=== PATIENT | female | born 1965 | race Caucasian/White ===

== ENCOUNTER 2017-11-27 23:58 | Observation (INO) | payer MEDICARE ==
[~2017-11-27] VITALS: Ht 160 cm; Wt 53.1 kg
[~2017-11-27 23:58] MED LIST: ASPI-482 PO; BENZ0.5T32 PO; BENZ2TAB5 PO; BISA-42 PO; CYCL-331 PO; DESL5TAB PO; DIPH25CA58 PO; DOCU100C2 PO; GABA-586 PO; IBUP800T19 PO; LAMO200T2 PO; LEVE500T6 PO; LEVO5TAB2 PO; LINA290C PO; LOSA1TAB19 PO; METO10TA PO; ONDA4TAB11 PO; PANT40TA5 PO; PHEN100C PO; POTA500T5 PO; RIZA10TA PO; TRAM-48 PO; ZALE10CA44 PO; ZIPR40CA2 PO; ZIPR60CA2 PO; ZIPR80CA2 PO
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
[2017-11-28] MEDS ORDERED: CONTRAST GIVEN MC PRN (00:30)
--- NOTE | 2017-11-28 00:33 | EKG ---
[address] [address] Test Date: 2017-11-28 Test Time: 00:28:37 Pat Name: NORMA POPE Department: Room: Gender: F Field Applications Specialist: CHARISSE : 1965 Requested By: MIKAELA ALEJANDRO Order Number: [id number] Reading MD: Tera Woo Measurements Intervals [place] Rate: 58 P: 0 WA: 118 QRS: 47 QRSD: 94 T: 63 QT: 458 QTc: 453 Interpretive Statements SINUS RHYTHM NORMAL ECG RI6.01 Compared to ECG 02/25/2016 08:27:42 Sinus tachycardia no longer present ST (T wave) deviation no longer present Electronically Signed On 12-05-2017 13:33:39 CDT by Tera Woo
[2017-11-28 00:47] LABS: BASO # 0.1 x10^3/uL (0.0-0.2); BASO % 1 % (0-3); EOS # 0.1 x10^3/uL (0.0-0.7); EOS % 3 % (0-3); HEMATOCRIT 38.3 % (36.0-47.0); HEMOGLOBIN 13.3 g/dL (12.0-15.5); LYMPH % 48 % (24-48); MEAN CORPUSCULAR HEMOGLOBIN 33 pg (25-35); MEAN CORPUSCULAR HGB CONC 35 g/dL (31-37); MEAN CORPUSCULAR VOLUME 95 fL (79-100); MONO # 0.4 x10^3/uL (0.0-1.1); MONO % 9 % (0-9); NEUT # 1.6 x10^3uL (1.8-7.7); NEUT % 38 % (31-73); PLATELET COUNT 290 x10^3/uL (140-400); RED BLOOD COUNT 4.06 x10^6/uL (3.50-5.40); RED CELL DISTRIBUTION WIDTH 13.2 % (11.5-14.5); WHITE BLOOD COUNT 4.2 x10^3/uL (4.0-11.0)
[2017-11-28] MEDS ORDERED: MVI, ADULT NO.4 WITH VIT K 10 ML, FOLIC ACID SYRINGE for ER 1 MG, THIAMINE 100 MG in IV... IV ONE ×4 (01:00)
[2017-11-28] MEDS ORDERED: LORazepam 2 MG/ML VIAL IV ONE ×2 (01:00→04:45)
[2017-11-28] MEDS ORDERED: IOHEXOL 300 MG/ML 75 ML VIAL. IV ONE (01:00)
[2017-11-28] MEDS ORDERED: THIAMINE 200 MG/2 ML VIAL. IV ONE (01:08)
[2017-11-28] MEDS ORDERED: MVI, ADULT NO.4 WITH VIT K 10 ML VIAL IV ONE (01:09)
[2017-11-28] MEDS ORDERED: FOLIC ACID 5 MG/ML SYRINGE for ER IV ONE (01:09)
[2017-11-28 01:13] LABS: ANION GAP 8 (6-14); BLOOD UREA NITROGEN 21 mg/dL (7-20); CALCIUM 9.1 mg/dL (8.5-10.1); CARBON DIOXIDE 30 mmol/L (21-32); CHLORIDE 103 mmol/L (98-107); CREATININE 1.1 mg/dL (0.6-1.0); GFR 52.2; GLUCOSE 69 mg/dL (70-99); MAGNESIUM 2.6 mg/dL (1.8-2.4); PHENY 4.7 mcg/mL (10.0-20.0); POTASSIUM 3.6 mmol/L (3.5-5.1); SODIUM 141 mmol/L (136-145)
[2017-11-28 01:20] LABS: BARBITURATES NEG (NEG); BENZODIAZEPINES NEG (NEG); CANNABINOIDS NEG (NEG); COCAINE NEG (NEG); METHADONE NEG (NEG); OPIATES NEG (NEG); PHENCYCLIDINE NEG (NEG)
[2017-11-28 01:21] LABS: AMPHETAMINE/METHAMPHETAMINE POS (NEG)
[2017-11-28 01:23] LABS: BACTERIA,URINE MANY /HPF (0-FEW); BILIRUBIN,URINE NEG (NEG); CLARITY,URINE HAZY; COLOR,URINE YELLOW; GLUCOSE,URINE NEG (NEG); NITRITE,URINE POS (NEG); RBC,URINE 0 /HPF (0-2); UROBILINOGEN,URINE 0.2 mg/dL (0.2 mg/dL)
[2017-11-28 01:43] LABS: SEDIMENTATION RATE 5 (0-25)
[2017-11-28] MEDS ORDERED: DEXTROSE 50% 25 GM / 50ML DISP.SYRIN. IV ONE ×2 (01:50→02:15)
[2017-11-28] MEDS ORDERED: PHENYTOIN 100 MG/4 ML ORAL.SUSP. PO ONE (02:00)
[2017-11-28] MEDS ORDERED: cefTRIAXone IM 1 GM VIAL IM ONE (02:00)
[2017-11-28] MEDS ORDERED: levETIRAcetam 500 MG TABLET PO ONE (02:00)
[2017-11-28] MEDS: PHENYTOIN SODIUM EXTENDED 100 MG CAPSULE PO ONE (02:45)
--- NOTE | 2017-11-28 03:11 | RAD ---
CT chest abdomen and pelvis with contrast: History: Pain status post seizure and fall Axial helical images of the chest and abdomen were obtained after the administration of 70 cc IV Omni 300 contrast. Comparison: none CT OF THE CHEST WITH IV CONTRAST: There is no mediastinal lymphadenopathy or hematoma. There is no hilar lymphadenopathy. The lungs are clear. The thoracic aorta appears normal. There is bilateral breast implants. There is a small hiatal hernia. There are anchors around the proximal stomach. Impression: No acute findings. End Impression CT SCAN OF THE ABDOMEN WITH IV CONTRAST: Findings: Liver: Unremarkable Spleen: Unremarkable Pancreas: Unremarkable Adrenal Glands: Unremarkable Kidneys: Unremarkable Evaluation of stomach and bowel is limited without oral contrast. There is no mass or lymphadenopathy. There is no free air. There is no free fluid. Impression: No acute findings. End impression PQRS Compliance Statement: One or more of the following individualized dose reduction techniques were utilized for this examination: 1. Automated exposure control 2. Adjustment of the mA and/or kV according to patient size 3. Use of iterative reconstruction technique Electronically signed by: Tahir Bear III, MD (11/28/2017 3:07 AM) [email or web address]
--- NOTE | 2017-11-28 03:28 | RAD ---
CT C-Spine without contrast: Clinical History: Seizure, fall, contusion to right orbit Technique: Axial helical images of the cervical spine were obtained without contrast, axial coronal and sagittal reconstruction was performed. Findings: There is degradation of the images due to significant motion artifact. There is no loss of vertebral body stature. There is no prevertebral soft tissue swelling. The vertebral bodies are well aligned. The C1-C2 relationship is normal. The visualized osseous structures appear normal. Evaluation of the central canal is limited without contrast. There is multiple posterior disc bulges resulting in flattening of the thecal sac. There does not appear to be gross flattening of the cervical cord. There is moderate narrowing of multiple neuroforamen. Impression: Limited study due to motion. No acute findings. Clinical correlation suggested. PQRS Compliance Statement: One or more of the following individualized dose reduction techniques were utilized for this examination: 1. Automated exposure control 2. Adjustment of the mA and/or kV according to patient size 3. Use of iterative reconstruction technique Electronically signed by: Tahir Bear III, MD (11/28/2017 3:25 AM) [facility]
--- NOTE | 2017-11-28 03:54 | RAD ---
CT Head W/O Contrast: History: seizure, fall, right orbital contusion
sent previous CT Head from01/2016 for comparison Comparison: February 25, 2016 Axial images were obtained without contrast. The coulter and white matter appears normal and symmetrical for the patients age. There is no mass effect, extraaxial fluid collections or hydrocephalus. There is no gross bleed. There is no focal loss of coulter-white matter distinction to suggest acute ischemia, i.e. stroke. Impression: No acute findings. RS Compliance Statement: One or more of the following individualized dose reduction techniques were utilized for this examination: 1. Automated exposure control 2. Adjustment of the mA and/or kV according to patient size 3. Use of iterative reconstruction technique Electronically signed by: Tahir Bear III, MD (11/28/2017 3:51 AM) [facility]
[2017-11-28] MEDS ORDERED: IV RINGERS SOLUTION,LACTATED 1,000 ML IV SCH (04:30)
[2017-11-28] MEDS ORDERED: ONDANSETRON PF 4 MG/2 ML VIAL. IV PRN (04:30)
[2017-11-28] MEDS ORDERED: LORazepam 2 MG/ML VIAL IV PRN (04:45)
[2017-11-28 05:17] VITALS: BP 133/88
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
[2017-11-28] MEDS ORDERED: PHENYTOIN 100 MG/4 ML ORAL.SUSP. PO SCH (06:00)
[2017-11-28] MEDS ORDERED: levETIRAcetam 500 MG/5 ML VIAL IV ONE (06:27)
--- NOTE | 2017-11-28 07:24 | RAD ---
Chest, 2 views, 11/28/2017: History: Seizure, fall, chest pain Comparison is made to a study from 02/25/2016. The heart size is normal. No pulmonary infiltrate is seen. There is no evidence of pneumothorax or pleural fluid. A mild thoracic scoliosis is evident. There are coil like radiopacities projected over the GE junction region. IMPRESSION: No acute cardiopulmonary abnormality is detected.
--- NOTE | 2017-11-28 07:26 | RAD ---
Abdomen, 2 views, 11/28/2017: History: Fall, seizure, abdominal pain Gas is present in large and small bowel in a nonspecific pattern. No free air is seen in the abdomen. There is no evidence of organomegaly. Surgical clips are present in the abdomen and pelvis. Mild scattered degenerative changes are evident in the spine. IMPRESSION: No acute abdominal abnormality is detected.
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
[2017-11-28] MEDS ORDERED: cefTRIAXone IV Push 1 GM VIAL. IVP SCH (22:00)
[2017-11-29 07:12] LABS: HCV ANTIBODY <0.1 s/co ratio (0.0-0.9)
== END 2017-11-28 10:06 | disposition left against medical advice (07) ==
LOC: ER 23:58 → 1 SOUTH 11-28 04:00 → INTOOBSV 11-28 04:00
PROVIDERS: ADMIT Family Medicine; ATTEND Family Medicine
DX: R58 Hemorrhage, not elsewhere classified (principal); F31.9 Bipolar disorder, unspecified; G40.909 Epilepsy, unspecified, not intractable, without status epilepticus; I10 Essential (primary) hypertension; E16.2 Hypoglycemia, unspecified; N39.0 Urinary tract infection, site not specified; Z72.0 Tobacco use; F11.90 Opioid use, unspecified, uncomplicated; Z87.440 Personal history of urinary (tract) infections; Z87.891 Personal history of nicotine dependence; Z90.710 Acquired absence of both cervix and uterus
CPT/HCPCS: 36415; 70450; 71046; 71260; 72125; 74021; 74160; 80048; 80074; 80185; 80307; 81001; 82140; 82553; 82947; 83605; 83735; 83880; 84484; 85025; 85610; 85651; 85730; 87040; 87086; 87186; 87205; 93005; 96372; 96374; 96375; 96376; 99285; G0378; J0696; J1953; J2060; J7120; Q9967; G0379; G0479

== ENCOUNTER 2017-12-03 07:09 | Emergency (ER) | payer MEDICARE ==
[~2017-12-03] VITALS: Ht 160 cm; Wt 67.4 kg
[2017-12-03 07:11] VITALS: BP 180/115
[2017-12-03 07:41] LABS: BASO % 1 % (0-3); EOS # 0.1 x10^3/uL (0.0-0.7); EOS % 1 % (0-3); HEMATOCRIT 40.3 % (36.0-47.0); LYMPH # 1.6 x10^3/uL (1.0-4.8); LYMPH % 22 % (24-48); MEAN CORPUSCULAR HEMOGLOBIN 33 pg (25-35); MEAN CORPUSCULAR HGB CONC 35 g/dL (31-37); MEAN CORPUSCULAR VOLUME 94 fL (79-100); MONO # 0.7 x10^3/uL (0.0-1.1); MONO % 10 % (0-9); NEUT # 4.7 x10^3uL (1.8-7.7); NEUT % 67 % (31-73); PLATELET COUNT 300 x10^3/uL (140-400); RED BLOOD COUNT 4.27 x10^6/uL (3.50-5.40); RED CELL DISTRIBUTION WIDTH 12.8 % (11.5-14.5); WHITE BLOOD COUNT 7.1 x10^3/uL (4.0-11.0)
[2017-12-03 07:53] LABS: ALBUMIN 3.8 g/dL (3.4-5.0); ALBUMIN/GLOBULIN RATIO 0.9 (1.0-1.7); CALCIUM 9.5 mg/dL (8.5-10.1); CREATININE 1.1 mg/dL (0.6-1.0); GFR 52.2; POTASSIUM 3.2 mmol/L (3.5-5.1); TOTAL BILIRUBIN 0.3 mg/dL (0.2-1.0)
[2017-12-03] MEDS ORDERED: IOHEXOL 300 MG/ML 75 ML VIAL. IV ONE (08:00)
[2017-12-03] MEDS ORDERED: IV NORMAL SALINE 1,000ML 1,000 ML IV ONE (08:00)
--- NOTE | 2017-12-03 08:20 | RAD ---
CT head without intravenous contrast History: Mental status change. Comparison: CT head November 28, 2017. Technique: Axial images are obtained of the head from the skull base through the vertex without IV contrast. Exposure: One or more of the following individualized dose reduction techniques were utilized for this examination: 1. Automated exposure control 2. Adjustment of the mA and/or kV according to patient size 3. Use of iterative reconstruction technique Findings: The ventricles are appropriate in size, shape, and location for the patient's age. No obvious intracranial mass, mass-effect, midline shift, hemorrhage or obvious acute infarction is identified. Basilar cisterns are patent. Bone windows demonstrate no acute calvarial abnormality. The visualized paranasal sinuses appear clear. Impression: No acute intracranial process. Please note that CT can be relatively insensitive to acute ischemic infarction for up to 24 hours after symptom onset. Electronically signed by: Cr Davenport MD (12/03/2017 8:17 AM) [facility]
--- NOTE | 2017-12-03 08:35 | RAD ---
CT Abdomen and Pelvis With Intravenous Contrast: History: Abdominal pain for 3 days. Comparison: CT abdomen pelvis October 21, 2014. Technique: After administration of intravenous contrast, 75 mL Omnipaque-300, CT of the abdomen and pelvis was performed. Exposure: One or more of the following individualized dose reduction techniques were utilized for this examination: 1. Automated exposure control 2. Adjustment of the mA and/or kV according to patient size 3. Use of iterative reconstruction technique Findings: Evaluation of enteric structures may be limited by lack of oral contrast. Images of lower chest demonstrate bilateral breast implants. There is evidence of small hiatal hernia versus slipped fundoplication. Suture material is seen at the gastroesophageal junction. Liver, spleen, pancreas, gallbladder, and bilateral adrenal glands are unremarkable. Bilateral kidneys enhance symmetrically. Aortic atherosclerosis is noted. Prior bowel surgery is noted. No evidence of bowel obstruction is identified. There is a single loop of bowel in the left side of the pelvis which is dilated, but this is thought to be chronic and compensatory as it is adjacent to the suture material. Appendix is without evidence of inflammation. Suture material is also seen at the rectum. Colonic diverticulosis is noted, but no diverticulitis appreciated. No free air or free fluid is seen in the abdomen or pelvis. Impression: 1. No acute abnormality identified in the abdomen or pelvis. Electronically signed by: Cr Davenport MD (12/03/2017 8:32 AM) [facility]
[2017-12-03 08:59] LABS: AMORPHOUS SEDIMENT,UR PRESENT /HPF; BACTERIA,URINE 0 /HPF (0-FEW); BILIRUBIN,URINE NEG (NEG); CLARITY,URINE CLOUDY; COLOR,URINE STRAW; GLUCOSE,URINE NEG (NEG); NITRITE,URINE NEG (NEG); RBC,URINE RARE /HPF (0-2); SQUAMOUS EPITHELIAL CELL,UR OCC /LPF; UROBILINOGEN,URINE 0.2 mg/dL (0.2 mg/dL); WBC,URINE RARE /HPF (0-4)
[2017-12-03 09:03] LABS: BARBITURATES NEG (NEG); BENZODIAZEPINES NEG (NEG); CANNABINOIDS NEG (NEG); COCAINE NEG (NEG); METHADONE NEG (NEG); OPIATES NEG (NEG); PHENCYCLIDINE NEG (NEG)
[2017-12-03 09:05] LABS: AMPHETAMINE/METHAMPHETAMINE POS (NEG)
[2017-12-03] MEDS ORDERED: LORazepam 2 MG/ML VIAL IV ONE (09:15)
--- NOTE | 2017-12-03 09:22 | ED.ADGEN ---
Past History Past Medical History: Bipolar, Constipation, Diverticulitis, Hypertension, Seizure, UTI, Other Past Surgical History: , Hysterectomy Smoking: Cigarettes Alcohol Use: Occasionally Drug Use: Marijuana, Methamphetamine Adult General Chief Complaint Chief Complaint Abdominal pain HPI HPI Patient is a 52-year-old female with history of , hysterectomy, seizure disorder, bipolar methamphetamine abuse who presents with diffuse right- sided abdominal pain. Symptom onset is unclear but did occur hours prior to ED arrival. Patient reported to be anxious, patient given 100 g of fentanyl by EMS. Denies nausea vomiting. No diarrhea constipation. Reports patient no blood in stools. Patient states she has had similar elbow pain for the past 4 months. She has not been evaluated by her primary care physician or GI specialist for her current symptoms. No fever chills or sweats. No hematuria, dysuria history of kidney stones. No other acute symptoms or complaints. History is somewhat limited as the patient appears anxious with suspected methamphetamine intoxication.[] Review of Systems Review of Systems Review symptoms as per history of present illness. All other review symptoms are negative. All other systems were reviewed and found to be within normal limits, except as documented in this note. Current Medications Current Medications Current Medications Medications (Trade) Dose Ordered Sig/Monico Start Time Stop Time Status Last Admin Dose Admin Iohexol (Omnipaque 300 Mg/ml) 75 ml 1X ONCE 12/03/17 08:00 12/03/17 08:01 DC 12/03/17 07:57 75 ML Lorazepam (Ativan) 1 mg 1X ONCE 12/03/17 09:15 12/03/17 09:16 DC 12/03/17 08:53 1 MG Sodium Chloride 1,000 ml @ 1,000 mls/hr 1X ONCE 12/03/17 08:00 12/03/17 08:59 DC 12/03/17 08:38 1,000 MLS/HR Allergies Allergies Allergies Coded Allergies Type Severity Reaction Last Updated Verified diphenhydramine Allergy Intermediate 10/07/14 Yes morphine Allergy Intermediate 10/07/14 Yes hydroxyzine Allergy Unknown 12/03/17 Yes Physical Exam Physical Exam Constitutional: Well developed, well nourished, no acute distress, non-toxic appearance. [] HENT: Normocephalic, atraumatic, bilateral external ears normal, oropharynx moist, nose normal. [] Eyes: PERRLA, EOMI, conjunctiva normal, no discharge. [] Neck: Normal range of motion. [] Cardiovascular:Heart rate regular rhythm, no murmur [] Lungs & Thorax: Bilateral breath sounds clear to auscultation [] Abdomen: Bowel sounds normal, soft, crease bowel sounds, mild distention, no rebound rigidity or guarding[] Skin: Warm, dry, no erythema, no rash. [] Back: No tenderness. [] Extremities: No tenderness, no edema. [] Neurologic: Alert and oriented X 3, normal motor function, normal sensory function, no focal deficits noted. [] Psychologic: Affect anxious.[] Current Patient Data Vital Signs Vital Signs Date Time Temp Pulse Resp B/P (MAP) Pulse Ox O2 Delivery O2 Flow Rate FiO2 12/03/17 07:11 98.3 125 20 100 Room Air Lab Results Laboratory Tests Test 12/03/17 07:15 12/03/17 08:27 White Blood Count 7.1 x10^3/uL (4.0-11.0) # Red Blood Count 4.27 x10^6/uL (3.50-5.40) Hemoglobin 14.0 g/dL (12.0-15.5) Hematocrit 40.3 % (36.0-47.0) Mean Corpuscular Volume 94 fL (79-100) Mean Corpuscular Hemoglobin 33 pg (25-35) Mean Corpuscular Hemoglobin Concent 35 g/dL (31-37) Red Cell Distribution Width 12.8 % (11.5-14.5) Platelet Count 300 x10^3/uL (140-400) Neutrophils (%) (Auto) 67 % (31-73) Lymphocytes (%) (Auto) 22 % (24-48) L Monocytes (%) (Auto) 10 % (0-9) H Eosinophils (%) (Auto) 1 % (0-3) Basophils (%) (Auto) 1 % (0-3) Neutrophils # (Auto) 4.7 x10^3uL (1.8-7.7) Lymphocytes # (Auto) 1.6 x10^3/uL (1.0-4.8) Monocytes # (Auto) 0.7 x10^3/uL (0.0-1.1) Eosinophils # (Auto) 0.1 x10^3/uL (0.0-0.7) Basophils # (Auto) 0.0 x10^3/uL (0.0-0.2) Sodium Level 142 mmol/L (136-145) Potassium Level 3.2 mmol/L (3.5-5.1) L Chloride Level 105 mmol/L (98-107) Carbon Dioxide Level 25 mmol/L (21-32) Anion Gap 12 (6-14) Blood Urea Nitrogen 26 mg/dL (7-20) H Creatinine 1.1 mg/dL (0.6-1.0) H Estimated GFR (Cockcroft-Gault) 52.2 BUN/Creatinine Ratio 24 (6-20) H Glucose Level 121 mg/dL (70-99) H Calcium Level 9.5 mg/dL (8.5-10.1) Total Bilirubin 0.3 mg/dL (0.2-1.0) Aspartate Amino Transferase (AST) 37 U/L (15-37) Alanine Aminotransferase (ALT) 61 U/L (14-59) H Alkaline Phosphatase 110 U/L (46-116) Total Protein 8.0 g/dL (6.4-8.2) Albumin 3.8 g/dL (3.4-5.0) Albumin/Globulin Ratio 0.9 (1.0-1.7) L Lipase 132 U/L (73-393) Ethyl Alcohol Level < 10 mg/dL (0-10) Urine Collection Type Unknown Urine Color Straw Urine Clarity Cloudy Urine pH 8.0 Urine Specific [place] 1.015 Urine Protein Neg (NEG-TRACE) Urine Glucose (UA) Neg mg/dL (NEG) Urine Ketones (Stick) Neg mg/dL (NEG) Urine Blood Trace (NEG) Urine Nitrite Neg (NEG) Urine Bilirubin Neg (NEG) Urine Urobilinogen Dipstick 0.2 mg/dL (0.2 mg/dL) Urine Leukocyte Esterase Neg (NEG) Urine RBC Rare /HPF (0-2) Urine WBC Rare /HPF (0-4) Urine Squamous Epithelial Cells Occ /LPF Urine Amorphous Sediment Present /HPF Urine Bacteria 0 /HPF (0-FEW) Urine Opiates Screen Neg (NEG) Urine Methadone Screen Neg (NEG) Urine Barbiturates Neg (NEG) Urine Phencyclidine Screen Neg (NEG) Urine Amphetamine/Methamphetamine Pos (NEG) Urine Benzodiazepines Screen Neg (NEG) Urine Cocaine Screen Neg (NEG) Urine Cannabinoids Screen Neg (NEG) Urine Ethyl Alcohol Neg (NEG) EKG EKG [] Radiology/Procedures Radiology/Procedures [CT abdomen pelvis: No acute abdominal process per radiology report. CT head: No acute findings per radiology report. ] Course & Med Decision Making Course & Med Decision Making Pertinent Labs and Imaging studies reviewed. (See chart for details) [Lab and CT imaging is reassuring. Suspect exacerbation of chronic abdominal pain. Recommend outpatient supportive care. ] Final Impression Final Impression 1. Abdominal pain-nonspecific[] 2. Methamphetamine intoxication Problems: Dragon Disclaimer Dragon Disclaimer This electronic medical record was generated, in whole or in part, using a voice recognition dictation system. JERRY CHRISTENSEN DO December 03, 2017 09:22
== END 2017-12-03 09:20 | disposition home or self-care (01) ==
LOC: ER 07:09
DX: R10.84 Generalized abdominal pain (principal); F15.129 Other stimulant abuse with intoxication, unspecified; F31.9 Bipolar disorder, unspecified; I10 Essential (primary) hypertension; G40.909 Epilepsy, unspecified, not intractable, without status epilepticus; F17.210 Nicotine dependence, cigarettes, uncomplicated; F12.10 Cannabis abuse, uncomplicated; Z87.440 Personal history of urinary (tract) infections; Z90.710 Acquired absence of both cervix and uterus; Z88.8 Allergy status to other drugs, medicaments and biological substances; Z88.5 Allergy status to narcotic agent
CPT/HCPCS: 36415; 70450; 74177; 80053; 80307; 81001; 83690; 85025; 96374; 99285; G0480; J2060; Q9967; G0479; J7030

== ENCOUNTER 2017-12-31 16:24 | Emergency (ER) | payer MEDICARE, OTHER ==
[2017-12-31 16:30] VITALS: BP 131/74
[2017-12-31] MEDS ORDERED: IV NORMAL SALINE 1,000ML 1,000 ML IV ONE (17:15)
--- NOTE | 2017-12-31 17:17 | PHYS DOC ---
Past History Past Medical History: Bipolar, Constipation, Diverticulitis, Hypertension, Seizure, UTI, Other Past Surgical History: , Hysterectomy Smoking: Cigarettes Alcohol Use: Occasionally Drug Use: Marijuana, Methamphetamine Adult General Chief Complaint Chief Complaint: DIZZY/LIGHT HEADED HPI HPI 52-year-old female presents with lightheadedness, dizziness, and agitation. The patient admits to methamphetamine use the last time 4 days ago. She states that she is feeling weak, dizzy, and agitated. The last time she was feeling weak and dizzy she had a hemoglobin of 2. She was found have a GI bleed and had surgery. Patient denies fever or chills. She does have a erythematous rash on the posterior bilateral thighs. She states that these spots come and go and seem to change location. She states they are pruritic. The patient is also been vomiting the last 2 days. She tried using some grilled cheese last night and vomited soon after. She denies shortness of breath, chest pain. Review of Systems Review of Systems Constitutional: Denies fever or chills [] Eyes: Denies change in visual acuity, redness, or eye pain [] HENT: Denies nasal congestion or sore throat [] Respiratory: Denies cough or shortness of breath [] Cardiovascular: No additional information not addressed in HPI [] GI: Denies abdominal pain, nausea, vomiting, bloody stools or diarrhea [] : Denies dysuria or hematuria [] Musculoskeletal: Denies back pain or joint pain [] Integument: Rash on posterior bilateral thighs[] Neurologic: Denies headache, focal weakness or sensory changes [] Endocrine: Denies polyuria or polydipsia [] All other systems were reviewed and found to be within normal limits, except as documented in this note. Current Medications Current Medications Current Medications Medications (Trade) Dose Ordered Sig/Monico Start Time Stop Time Status Last Admin Dose Admin Sodium Chloride 1,000 ml @ 1,000 mls/hr 1X ONCE 12/31/17 17:15 12/31/17 18:14 UNV Allergies Allergies Allergies Coded Allergies Type Severity Reaction Last Updated Verified diphenhydramine Allergy Intermediate 10/07/14 Yes morphine Allergy Intermediate 10/07/14 Yes hydroxyzine Allergy Unknown 12/03/17 Yes Physical Exam Physical Exam Constitutional: Well developed, well nourished, no acute distress, non-toxic appearance. [] HENT: Normocephalic, atraumatic, bilateral external ears normal, oropharynx moist, no oral exudates, nose normal. [] Eyes: PERRLA, EOMI, conjunctiva normal, no discharge. [] Neck: Normal range of motion, no tenderness, supple, no stridor. [] Cardiovascular:Heart rate regular rhythm, no murmur [] Lungs & Thorax: Bilateral breath sounds clear to auscultation [] Abdomen: Bowel sounds normal, soft, no tenderness, no masses, no pulsatile masses. [] Skin: Erythematous patches on the bilateral posterior upper thighs. They look similar to urticaria, but they are not found anywhere else on her body. She has several sores from picking on her arms and lower legs.[] Back: No tenderness, no CVA tenderness. [] Extremities: No tenderness, no cyanosis, no clubbing, ROM intact, no edema. [] Neurologic: Alert and oriented X 3, normal motor function, normal sensory function, no focal deficits noted. [] Psychologic: Moving constantly on the bed. Cooperative, but hyper requiring redirection. [] EKG EKG [] Radiology/Procedures Radiology/Procedures [] Course & Med Decision Making Course & Med Decision Making Pertinent Labs and Imaging studies reviewed. (See chart for details) [ED course: Evaluation reveals a 52-year-old female with lightheadedness, dizziness and agitation. She does have a history of methamphetamine use she last used 4 days ago. I explained to her that coming off of that Medication will make you feel weak and lightheaded and agitated. I've encouraged her to stick with it is she will get better over time. I reviewed all of her laboratory studies and they all looked great. She is safe for discharge home.] Dragon Disclaimer Dragon Disclaimer This electronic medical record was generated, in whole or in part, using a voice recognition dictation system. Departure Departure: Impression: Primary Impression: Dizziness Additional Impression: Generalized weakness Disposition: 01 HOME, SELF-CARE Condition: IMPROVED Referrals: NAVEEN LEAL (PCP) Patient Instructions: Dizziness, Substance Abuse-Brief, Weakness Additional Instructions: I'm very pleased that she has been off of methamphetamines for 4 days. The worst of her symptoms should be over. Please know that you're welcome back to the emergency department at any time. Problem Qualifiers JERRY MCCANN DO Dec 31, 2017 17:17 ARNALDO BE DO Dec 31, 2017 18:49
[2017-12-31 17:34] LABS: BASO # 0.1 x10^3/uL (0.0-0.2); BASO % 1 % (0-3); EOS # 0.1 x10^3/uL (0.0-0.7); EOS % 1 % (0-3); HEMATOCRIT 37.4 % (36.0-47.0); HEMOGLOBIN 12.9 g/dL (12.0-15.5); LYMPH # 2.6 x10^3/uL (1.0-4.8); LYMPH % 38 % (24-48); MEAN CORPUSCULAR HEMOGLOBIN 33 pg (25-35); MEAN CORPUSCULAR HGB CONC 35 g/dL (31-37); MEAN CORPUSCULAR VOLUME 95 fL (79-100); MONO # 0.6 x10^3/uL (0.0-1.1); MONO % 10 % (0-9); NEUT # 3.4 x10^3uL (1.8-7.7); NEUT % 50 % (31-73); PLATELET COUNT 343 x10^3/uL (140-400); RED BLOOD COUNT 3.94 x10^6/uL (3.50-5.40); RED CELL DISTRIBUTION WIDTH 13.2 % (11.5-14.5); WHITE BLOOD COUNT 6.8 x10^3/uL (4.0-11.0)
--- NOTE | 2017-12-31 18:08 | RAD ---
PA and lateral chest. HISTORY: Weakness, cough PA and lateral views were taken of the chest. Lungs are free of confluent infiltrates. There is mild scoliosis. Heart is normal in size. There is no effusion. There is mild bowel distention in the abdomen with fluid levels in the colon. IMPRESSION: 1. No acute infiltrates. Electronically signed by: Ruddy Méndez MD (12/31/2017 6:05 PM) [facility]
--- NOTE | 2017-12-31 18:17 | RAD ---
Left elbow 3 views. HISTORY: Fall today, left elbow pain 3 views were taken of the left elbow. Fat pads at the elbow are not displaced. There is no acute fracture. There is mild spurring or small joint body at the anterior margin of the joint. IMPRESSION: 1. No acute fracture. Electronically signed by: Ruddy Méndez MD (12/31/2017 6:14 PM) [facility]
[2017-12-31 18:20] LABS: BILIRUBIN,URINE NEG (NEG); CLARITY,URINE CLEAR; COLOR,URINE STRAW; GLUCOSE,URINE NEG (NEG)
[2017-12-31 18:21] LABS: ALBUMIN 3.5 g/dL (3.4-5.0); ALBUMIN/GLOBULIN RATIO 0.9 (1.0-1.7); CALCIUM 8.5 mg/dL (8.5-10.1); CREATININE 1.1 mg/dL (0.6-1.0); GFR 52.2; NITRITE,URINE NEG (NEG); POTASSIUM 3.4 mmol/L (3.5-5.1); TOTAL BILIRUBIN 0.3 mg/dL (0.2-1.0); TOTAL PROTEIN 7.3 g/dL (6.4-8.2); UROBILINOGEN,URINE 0.2 mg/dL (0.2 mg/dL)
[2017-12-31 18:23] LABS: BACTERIA,URINE 0 /HPF (0-FEW); RBC,URINE OCC /HPF (0-2); SQUAMOUS EPITHELIAL CELL,UR OCC /LPF
== END 2017-12-31 18:58 | disposition home or self-care (01) ==
LOC: ER 16:24
DX: R42 Dizziness and giddiness (principal); R53.1 Weakness; R11.10 Vomiting, unspecified; M25.522 Pain in left elbow; R21 Rash and other nonspecific skin eruption; I10 Essential (primary) hypertension; F17.210 Nicotine dependence, cigarettes, uncomplicated; F15.10 Other stimulant abuse, uncomplicated; Z87.440 Personal history of urinary (tract) infections; Z88.5 Allergy status to narcotic agent; Z88.8 Allergy status to other drugs, medicaments and biological substances; W19.XXXA Unspecified fall, initial encounter; Y93.89 Activity, other specified; Y99.8 Other external cause status; Y92.89 Other specified places as the place of occurrence of the external cause
CPT/HCPCS: 36415; 71046; 73080; 80053; 81001; 85025; 96360; 99285-25; J7030

== ENCOUNTER 2018-03-02 17:34 | Inpatient (IN) | payer MEDICARE, OTHER ==
[~2018-03-02] VITALS: Ht 162.6 cm; Wt 56.9 kg
--- NOTE | 2018-03-02 17:42 | PHYS DOC ---
Past History Past Medical History: Bipolar, Diverticulitis, Fibromyalgia, GERD, Hypertension , Other Past Surgical History: Hysterectomy, Tonsillectomy, Other Smoking: Cigarettes Alcohol Use: Rarely Drug Use: Methamphetamine Adult General Chief Complaint Chief Complaint: Neck Pain HPI HPI Patient is a 52-year-old female who presents to the emergency department for evaluation. She states that she smoked methamphetamine this morning, and has had several falls. She complains of head and neck pain, as well as bilateral elbow pain. She is in a cervical collar. She has a history of bipolar disorder and anxiety, as well as epilepsy, and states she takes Keppra and Dilantin. She appears to be hyperventilating and very anxious and does have the appearance of being intoxicated on methamphetamine. She denies any chest pain. She has not had any definite vision changes or focal weakness. Her history is limited secondary to her intoxication there are no alleviating or exacerbating factors to her symptoms, although EMS reported hyperalgesia, with pain everywhere the patient was palpated. Review of Systems Review of Systems Constitutional: Denies fever or chills [] Eyes: Denies change in visual acuity, redness, or eye pain [] HENT: Denies nasal congestion or sore throat [] Respiratory: Denies cough or shortness of breath [] Cardiovascular:The patient denies any shortness of breath, chest pain, palpitations, or orthopnea [] GI: Denies abdominal pain, nausea, vomiting, bloody stools or diarrhea [] : Denies dysuria or hematuria [] Musculoskeletal: Patient reports head and neck pain, as well as bilateral elbow pain. She denies any other focal pain at this time. [] Integument: Denies rash or skin lesions [] Neurologic: Denies focal weakness or sensory changes [] Endocrine: Denies polyuria or polydipsia [] All other systems were reviewed and found to be within normal limits, except as documented in this note. Allergies Allergies Allergies Coded Allergies Type Severity Reaction Last Updated Verified diphenhydramine Allergy Intermediate 10/07/14 Yes morphine Allergy Intermediate 10/07/14 Yes hydroxyzine Allergy Unknown 12/03/17 Yes Physical Exam Physical Exam PHYSICAL EXAM: CONSTITUTIONAL: Well developed, well nourished HEAD: normocephalic, atraumatic EENT: PERRL, EOMI. Conjunctivae normal color, sclerae non-icteric; moist mucous membranes. NECK: Is mild diffuse tenderness to palpation of the cervical spine, examined on a limited basis through the cervical collar. LUNGS: Lungs CTA, breathing even and unlabored. Normal air movement. The patient is hyperventilating. HEART: Regular rate and rhythm, no murmur CHEST: No deformity; non-tender ABDOMEN: The abdomen is soft, and non-tender, no masses or bruits. EXTREM: Normal ROM; no deformity, no calf tenderness. Normal pulses palpable in all extremities. There is no pedal edema. There is soft tissue swelling noted on the left olecranon bursa, without any other deformity. There is diffuse tenderness to palpation to both elbows. MUSCULOSKELETAL: There is diffuse tenderness to palpation to the entire axial an impending ventricular skeleton without other focal bony tenderness to palpation. SKIN: No rash; no diaphoresis NEURO: Alert; normal speech and cognition; CN's grossly intact; strength grossly intact without focal deficit. BACK: No CVA TTP. PSYCHIATRIC: The patient is hyperventilating, appears extremely anxious, under the influence of amphetamines. EKG EKG [Normal sinus rhythm a rate of 86 bpm, normal axis, normal intervals, there are no acute ischemic ST/T changes.] Radiology/Procedures Radiology/Procedures [] Course & Med Decision Making Course & Med Decision Making 6:00 PM: Diagnostic workup is pending at this time. Care will be turned over to Dr. Arnold at shift change, report given. Jasiel Disclaimer Jasiel Disclaimer This electronic medical record was generated, in whole or in part, using a voice recognition dictation system. Departure Departure: Impression: Primary Impression: Methamphetamine intoxication Referrals: NAVEEN LEAL (PCP) TANK SOUZA MD Mar 02, 2018 17:42
[2018-03-02] MEDS ORDERED: LORazepam 2 MG/ML VIAL IV ONE (17:45)
[2018-03-02 17:50] LABS: BASO % 0 % (0-3); EOS # 0.1 x10^3/uL (0.0-0.7); EOS % 2 % (0-3); HEMATOCRIT 40.1 % (36.0-47.0); LYMPH # 2.2 x10^3/uL (1.0-4.8); LYMPH % 40 % (24-48); MEAN CORPUSCULAR HEMOGLOBIN 33 pg (25-35); MEAN CORPUSCULAR HGB CONC 35 g/dL (31-37); MEAN CORPUSCULAR VOLUME 94 fL (79-100); MONO # 0.4 x10^3/uL (0.0-1.1); MONO % 8 % (0-9); NEUT # 2.7 x10^3uL (1.8-7.7); NEUT % 50 % (31-73); PLATELET COUNT 294 x10^3/uL (140-400); RED BLOOD COUNT 4.26 x10^6/uL (3.50-5.40); RED CELL DISTRIBUTION WIDTH 12.8 % (11.5-14.5); WHITE BLOOD COUNT 5.5 x10^3/uL (4.0-11.0)
[2018-03-02 18:11] LABS: ALBUMIN 3.4 g/dL (3.4-5.0); ALBUMIN/GLOBULIN RATIO 0.8 (1.0-1.7); ALK PHOS 123 U/L (46-116); ALT (SGPT) 22 U/L (14-59); ANION GAP 14 (6-14); AST (SGOT) 18 U/L (15-37); BLOOD UREA NITROGEN 18 mg/dL (7-20); BUN/CREATININE RATIO 15 (6-20); CALCIUM 9.1 mg/dL (8.5-10.1); CARBON DIOXIDE 21 mmol/L (21-32); CHLORIDE 105 mmol/L (98-107); CREATININE 1.2 mg/dL (0.6-1.0); GFR 47.2; GLUCOSE 101 mg/dL (70-99); MAGNESIUM 2.5 mg/dL (1.8-2.4); PHENY 4.3 mcg/mL (10.0-20.0); POTASSIUM 3.5 mmol/L (3.5-5.1); SODIUM 140 mmol/L (136-145); TOTAL BILIRUBIN 0.2 mg/dL (0.2-1.0); TOTAL PROTEIN 7.6 g/dL (6.4-8.2)
--- NOTE | 2018-03-02 18:28 | RAD ---
PQRS Compliance Statement: One or more of the following individualized dose reduction techniques were utilized for this examination: 1. Automated exposure control 2. Adjustment of the mA and/or kV according to patient size 3. Use of iterative reconstruction technique CT head and cervical spine without contrast 03/02/2018 5:49 PM INDICATION: Fall, head and neck pain COMPARISON: CT head December 03, 2017, CT head and cervical spine November 28, 2017 TECHNIQUE: Multiple axial CT images of the head were obtained from skull base through the vertex without intravenous contrast. Multiple axial CT images of the cervical spine were obtained without intravenous contrast. Coronal and sagittal reformats are provided. FINDINGS: Head: Ventricles, sulci and basal cisterns are within normal limits. There is no hydrocephalus. Leo-white matter differentiation is normal. There is no acute intracranial hemorrhage. There is no mass, mass effect or midline shift. Posterior fossa is normal in appearance. Visualized portions of the orbits are normal. Paranasal sinuses are well aerated. Mastoid air cells are well aerated. Scalp and calvaria are normal. Cervical spine: Alignment of the cervical spine is normal. Skull base is intact. Craniocervical junction is normal in appearance. Atlantoaxial articulation is normal. Vertebral body heights are maintained without evidence for acute fracture. Mild to moderate facet arthropathy is noted primarily involving the right at C2-C3 and on the left at C4-C5 and C5-C6. Mild disc height loss with anterior marginal osteophytosis is noted at C4-C5 and C5-C6. There is moderate left and mild right neuroforaminal stenosis at C5-C6. No significant spinal canal stenosis. There is no prevertebral soft tissue swelling. Thyroid gland is normal in appearance. Visualized portions of the lung apices are normal without evidence for suspicious pulmonary nodule or infiltrate. Likely reactive cervical lymph nodes are visualized measuring up to 8 mm in the right level 2 distribution and 6 mm in the left level 2 distribution. IMPRESSION: 1. No acute intracranial hemorrhage. 2. No acute fracture or malalignment of the cervical spine. There is mild cervical spondylosis. Electronically signed by: Whitley Ortiz MD (03/02/2018 6:24 PM) [facility]
[2018-03-02] MEDS ORDERED: FOSPHENYTOIN IV ONE (19:30)
[2018-03-02] MEDS ORDERED: NORMAL SALINE IV ONE (19:30)
[2018-03-02 19:41] LABS: AMPHETAMINE/METHAMPHETAMINE POS (NEG); BARBITURATES NEG (NEG); BENZODIAZEPINES NEG (NEG); CANNABINOIDS NEG (NEG); COCAINE NEG (NEG); METHADONE NEG (NEG); OPIATES POS (NEG); PHENCYCLIDINE NEG (NEG)
[2018-03-02 19:56] LABS: BILIRUBIN,URINE NEG (NEG); CLARITY,URINE CLEAR; COLOR,URINE YELLOW; GLUCOSE,URINE NEG (NEG); UROBILINOGEN,URINE 0.2 mg/dL (0.2 mg/dL)
[2018-03-02 19:57] LABS: BACTERIA,URINE 0 /HPF (0-FEW); HYALINE CASTS, URINE FEW /HPF; NITRITE,URINE NEG (NEG); SQUAMOUS EPITHELIAL CELL,UR FEW /LPF
[2018-03-02] MEDS ORDERED: ONDANSETRON PF 4 MG/2 ML VIAL. IV PRN (21:30)
[2018-03-02 22:22] VITALS: BP 106/66
[2018-03-02] MEDS: IV NORMAL SALINE 1,000ML 1,000 ML IV SCH (22:23)
[2018-03-03 05:24] LABS: BASO % 1 % (0-3); EOS # 0.2 x10^3/uL (0.0-0.7); EOS % 4 % (0-3); HEMATOCRIT 39.9 % (36.0-47.0); HEMOGLOBIN 13.5 g/dL (12.0-15.5); LYMPH # 1.7 x10^3/uL (1.0-4.8); LYMPH % 43 % (24-48); MEAN CORPUSCULAR HEMOGLOBIN 33 pg (25-35); MEAN CORPUSCULAR HGB CONC 34 g/dL (31-37); MEAN CORPUSCULAR VOLUME 96 fL (79-100); MONO # 0.4 x10^3/uL (0.0-1.1); MONO % 11 % (0-9); NEUT # 1.6 x10^3uL (1.8-7.7); NEUT % 41 % (31-73); PLATELET COUNT 278 x10^3/uL (140-400); RED BLOOD COUNT 4.17 x10^6/uL (3.50-5.40); RED CELL DISTRIBUTION WIDTH 12.9 % (11.5-14.5); WHITE BLOOD COUNT 3.9 x10^3/uL (4.0-11.0)
[2018-03-03 05:43] VITALS: BP 100/66
[2018-03-03 05:47] LABS: CALCIUM 8.4 mg/dL (8.5-10.1); CREATININE 0.9 mg/dL (0.6-1.0); GFR 65.8; POTASSIUM 3.6 mmol/L (3.5-5.1)
[2018-03-03] MEDS: IV NORMAL SALINE 1,000ML 1,000 ML IV SCH ×2 (07:12→16:08)
--- NOTE | 2018-03-03 07:43 | EKG ---
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
--- NOTE | 2018-03-03 08:30 | RAD ---
Bilateral elbows, 6 views, 03/02/2018: HISTORY: Fall, pain No acute fracture or dislocation is identified. There is mild spurring at the left elbow joint. No joint effusion is evident. There is soft tissue swelling posteriorly at the left elbow. IMPRESSION: No acute bony abnormality is detected. Electronically signed by: Silver Lord MD (03/03/2018 8:26 AM) [facility]
--- NOTE | 2018-03-03 08:31 | RAD ---
AP chest, 03/02/2018: HISTORY: Fall, chest pain The heart size and pulmonary vascularity are normal. No pulmonary infiltrate is seen. There is no evidence of pleural fluid or pneumothorax. Mild scattered degenerative changes are present in the spine. IMPRESSION: No acute cardiopulmonary abnormality is detected. Electronically signed by: Silver Lord MD (03/03/2018 8:27 AM) [facility]
[2018-03-03] MEDS ORDERED: CETI-282 PO (10:39)
[2018-03-03] MEDS ORDERED: CLON0.5T11 PO (10:39)
[2018-03-03] MEDS ORDERED: ESCITALOPRAM OX10 MG PO (10:39)
[2018-03-03] MEDS ORDERED: LURA40TA PO (10:39)
[2018-03-03] MEDS ORDERED: ONDANSETRON ODT 4 MG TAB.RAPDIS PO PRN (10:45)
[2018-03-03] MEDS ORDERED: diphenhydrAMINE HCL 25 MG CAPSULE PO PRN (10:45)
[2018-03-03] MEDS ORDERED: BISACODYL TAB 5 MG TABLET.DR. PO PRN (10:45)
[2018-03-03 10:55] VITALS: BP 106/72
[2018-03-03] MEDS: CITALOPRAM 20 MG TABLET. PO SCH (12:38)
[2018-03-03] MEDS: PANTOPRAZOLE 40 MG TABLET. PO SCH (12:38)
[2018-03-03] MEDS: levETIRAcetam 500 MG TABLET PO SCH ×2 (12:38→20:10)
[2018-03-03] MEDS: CETIRIZINE HCL 10 MG TABLET PO SCH (12:38)
[2018-03-03] MEDS: clonazePAM 0.5 MG TABLET PO SCH ×2 (12:38→20:10)
[2018-03-03] MEDS: LOSARTAN 50 MG TABLET. PO SCH (12:39)
[2018-03-03] MEDS: BENZTROPINE MESYLATE 1 MG TABLET PO SCH ×2 (12:39→20:10)
[2018-03-03] MEDS: CYCLOBENZAPRINE 10 MG TABLET. PO SCH ×2 (12:39→20:11)
[2018-03-03] MEDS: hydroCHLOROthiazide 12.5 MG CAPSULE PO SCH (12:39)
[2018-03-03] MEDS: LINACLOTIDE 145 MCG CAPSULE. PO SCH (12:40)
--- NOTE | 2018-03-03 12:46 | HP ---
ADMIT DATE: 03/02/2018 HISTORY OF PRESENT ILLNESS: The patient is a 52-year-old female patient who came to the Emergency Room for evaluation as she smoked methamphetamine in the morning of admission day and has had several falls. She complains of head and neck pain as well as bilateral elbow pain. She is in a cervical collar. She has a history of bipolar disorder, anxiety as well as epilepsy for which takes Keppra and Dilantin. She appears to be anxious, hyperventilating when she arrived there and does have the appearance of being intoxicated on amphetamine. She denied any chest pain. She has not had any definite vision changes or focal weakness. She complained of pain everywhere. She was extensively investigated in the Emergency Room and has had multiple imaging including CT scan of the head and cervical spine x-rays, elbows and chest, and was admitted for further evaluation and treatment. PAST MEDICAL HISTORY: Significant for hypertension, seizure disorder, bipolar disorder, anxiety and depression, rheumatoid arthritis and gastroesophageal reflux disease as well as generalized epilepsy. PAST SURGICAL HISTORY: Significant for total hysterectomy with bilateral salpingo-oophorectomy, multiple hernia repair, breast augmentation. She did receive blood transfusion and apparently developed bowel tear and bowel resection in 09/2014. She underwent also exploratory laparotomy and adhesiolysis. ALLERGIES: SHE IS ALLERGIC TO MORPHINE, BENADRYL AND VISTARIL. FAMILY HISTORY: Her mother is alive, has diabetes and hypertension. Father because of brain cancer, diabetes, and hypertension. SOCIAL HISTORY: She is , has 2 sons. She lives with her , does not speak Arabic, does not smoke or drink alcohol, but has been clean for almost 7-month according to her and yesterday was the first time, she relapsed and used the methamphetamine that was brought in by her friends. MEDICATIONS: She is currently on following medications: She is on diphenhydramine 25 mg every 6 hours, cetirizine 10 mg daily, cyclobenzaprine 10 mg twice a day, losartan/hydrochlorothiazide 50/12.5 mg daily. She is on ibuprofen 800 mg 3 times a day, clonazepam 0.5 mg twice a day, phenytoin sodium extended release 400 mg at bedtime. She is on gabapentin 300 mg 3 times a day, levetiracetam for Keppra 500 mg twice a day, escitalopram oxalate 10 mg daily, lurasidone for Latuda 40 mg daily, benztropine mesylate 2 mg twice a day, bisacodyl 5 mg tablet, she takes 15 mg daily, ondansetron 8 mg 3 times a day, Protonix 40 mg daily and linaclotide for Linzess 290 mcg daily. REVIEW OF SYSTEMS: As per history of present illness. PHYSICAL EXAMINATION: GENERAL: On arrival to the Emergency Room, she apparently was hyperventilating and was somewhat intoxicated; however, there is no pallor, jaundice, cyanosis, lymphadenopathy or thyromegaly. No jugular venous distension. No limb edema. VITAL SIGNS: Her heart rate was 101, blood pressure 105/66, temperature was 97.5, respiratory rate was 26, and oxygen saturation 100% on room air. HEENT: Showed normocephalic, atraumatic. NECK: Supple. She was actually in cervical collar. HEART: Showed normal first and second heart sounds with no gallop, rub or murmur. CHEST: Clear to auscultation. No crepitation or rhonchi. ABDOMEN: Distended, soft, nontender. No guarding or rigidity. No organomegaly. Hernial orifice intact and bowel sounds normal. She has multiple scars from previous surgeries. NEUROLOGIC: She was somewhat lethargic, but arousable. All cranial nerves intact. EXTREMITIES: He moves extremities without difficulty. LABORATORY DATA: On admission showed a white cell count. Serum sodium 140, potassium 3.5, chloride 105, bicarbonate 21, anion gap of 14, BUN 18, creatinine 1.2, estimated GFR was 47.2. Glucose was 111, calcium 9.1, magnesium 2.5. Total bilirubin, AST, ALT, alkaline phosphatase are all normal. Her urinalysis showed the urine was yellow, clear with a pH of 5.5, specific gravity of 1.025. The urine was negative for protein, glucose. There was trace of ketones, negative for blood, nitrite and leukocyte esterase. There were only 1-2 rbc's, 1-4 wbc's and no bacteria. Her toxic screen was positive for opiates as well as amphetamine, methamphetamine and was negative for alcohol, cannabinoids, cocaine, benzodiazepine, phencyclidine. Her phenytoin level was only 4.3 mcg/mL, which is subtherapeutic as the therapeutic range is between 10-20 mcg/mL. RADIOLOGICAL DATA: Because of pain in her elbow joints and also neck pain, she underwent a CT scan of the head and cervical spine. CT scan of the head without contrast showed that the ventricles, sulci and basal cisterns are within normal limits. There is no hydrocephalus. Retana and white matter differentiation is normal. There is no acute intracranial hemorrhage. There is no mass, mass effect or midline shift. Posterior fossa is normal in appearance. The visualized portion of the orbits are normal. Paranasal sinuses are well aerated. Mastoid air cells are well aerated. Scalp and calvaria are normal. The CT scan of the cervical spine showed the alignment of the cervical spine is normal. Skull base is intact. Craniocervical junction is normal in appearance. Atlantoaxial articulation is normal. Vertebral body heights are maintained without evidence of acute fracture. She has [id number] facet arthropathy, is noted primarily involving the right at C2-C3 and on the left at C4-C5 and C5-C6, mild disk height loss with anterior marginal osteophytosis noted at C4-C5 and C5-C6. There is moderate left and mild right neural foraminal stenosis at C5-C6. No significant spinal canal stenosis. There is no prevertebral soft tissue swelling. Thyroid gland is normal in appearance. Visualized portion of the lung apices are normal without evidence of suspicious pulmonary nodules or infiltrate, likely reactive cervical lymph nodes are visualized measuring up to 8 mm in the right level 2 distribution and 6 mm in the left level 2 distribution. IMPRESSION: The patient has no intracranial hemorrhage and no acute fracture or malalignment of cervical spine, with mild cervical spondylosis. Her x-ray of the elbow showed no acute fracture or dislocation identified. There is mild scarring at the left elbow joint. No joint effusion is evident. There is soft tissue swelling posteriorly in the left elbow as she has olecranon bursitis. Her chest x-ray showed that the heart size and pulmonary vascularity are normal. No pulmonary infiltrate is seen. There is no evidence of pleural effusion or pneumothorax, mild scattered degenerative changes are present in the spine. So, the patient was basically admitted with methamphetamine intoxication. She also complained of neck pain, elbow pain as she has fallen multiple times. Her phenytoin level was subtherapeutic, so she was given 1000 mg of Keppra IV and fosphenytoin sodium 540 mg together with lorazepam. We will consult Dr. Habib and decide on further management accordingly. MEHNAZ WETZEL MD DR: JOSELO/ceci JOB#: [id number] / [id number]
--- NOTE | 2018-03-03 13:12 | RAD ---
CT LUMBAR SPINE WO CONTRAST, CT THORACIC SPINE WO CONTRAST Indication: SEVERE PAIN WITH RECENT FALL Technique: Noncontrast CT imaging was performed of the thoracic and lumbar spine, multiplanar reconstruction images submitted. One or more of the following individualized dose reduction techniques were utilized for this examination: 1. Automated exposure control 2. Adjustment of the mA and/or kV according to patient size 3. Use of iterative reconstruction technique. Contrast: None Comparison: November 28, 2017 CT chest abdomen and pelvis exam Thoracic spine: Findings: There are again multilevel Schmorl's nodes. Thoracic vertebral body stature is unchanged. AP alignment is unchanged. There is mild to moderate degenerative disc disease most notable T6-T7 through T10-11. No acute thoracic spine fracture is identified. There is mild mid thoracic dextroscoliosis. There is small hiatal hernia. There is some mild atelectasis lower lobes bilaterally. IMPRESSION: 1. No acute thoracic spine fracture is identified. There is multilevel thoracic degenerative disc disease, also multilevel Schmorl's nodes. 2. There is hiatal hernia. Lumbar spine: FINDINGS: Lumbar vertebral body stature and AP alignment are unchanged. There is negligible anterior spondylolisthesis at L4-5. Intervertebral disc spaces are mostly maintained, very mild narrowing L5-S1. No acute lumbar spine fracture is identified. There is facet degenerative change greatest at L4-5 and L5-S1. IMPRESSION: 1. No acute lumbar spine fracture is identified. Electronically signed by: Per Lucero MD (03/03/2018 1:09 PM) [id number]
[2018-03-03] MEDS: IBUPROFEN 800 MG TABLET. PO SCH ×2 (14:27→20:10)
[2018-03-03] MEDS: GABAPENTIN 300 MG CAPSULE. PO SCH ×2 (14:27→20:11)
[2018-03-03 14:45] VITALS: BP 131/77
[2018-03-03 19:40] VITALS: BP 114/72
[2018-03-03] MEDS ORDERED: PHENYTOIN SODIUM EXTENDED 100 MG CAPSULE PO SCH (21:00)
[2018-03-03] MEDS ORDERED: LURASIDONE 40 MG TABLET. PO SCH (21:00)
[2018-03-03 22:41] VITALS: BP 121/76
--- NOTE | 2018-03-03 23:56 | PN ---
DATE: 03/03/2018 SUBJECTIVE: The patient was admitted yesterday after she used amphetamine, has been clean for almost 7 months. She came with multiple falls, complaining of aches and pains all over, in particular in her neck and her elbows. She was extensively investigated. Apart from the fact that she has a subtherapeutic phenytoin level, all her labs and imaging studies were normal. When I saw her today, she will continue to be somewhat lethargic, but arousable. She also continued to complain of marked dizziness. She did receive a loading dose of phenytoin, loading dose of Keppra as well as lorazepam. PHYSICAL EXAMINATION: GENERAL: When I examined her this morning, she was somewhat pale, but no jaundice, cyanosis, or thyromegaly. No jugular venous distension. No lower limb edema. VITAL SIGNS: Her heart rate was 82, blood pressure was 106/72, temperature was 98.2, respiratory rate was 16, and oxygen saturation was 98%. HEAD, EYES, EARS, NOSE AND THROAT: Normocephalic, atraumatic. NECK: Supple. HEART: Showed normal first and second heart sounds. No gallop, rub or murmur. CHEST: Clear to auscultation. No crepitation or rhonchi. ABDOMEN: Scaphoid, soft, nontender. NEUROLOGIC: She was somewhat lethargic, but arousable. All cranial nerves intact. She moves her extremities without difficulty, although she was complaining of severe back pain and pain in her both elbows, more so on the left, she has olecranon bursitis. Her intake over the last 24 hours was 1420, no output was recorded. LABORATORY DATA: Her lab work this morning showed a white cell count 3900, hemoglobin 13, hematocrit 39, MCV 96, and platelet count 278,000 with normal manual differential. Her chemistry showed a serum sodium 141, potassium 3.6, chloride 106, bicarbonate 28, anion gap of 7, BUN 15, creatinine 0.9, estimated GFR was 65 mL per minute. Her glucose was 85 and calcium was 8.4. ASSESSMENT: This is a 52-year-old female patient who came in with amphetamine intoxication. She has a multitude of medical problems including seizure disorder, rheumatoid arthritis, bipolar disorder, anxiety and depression, gastroesophageal reflux disease. PLAN: I have already consulted Dr. Habib, although intoxication or side effect of phenytoin might cause this perhaps dizziness. I will get also PT, OT. I will check also her sed rate and CRP and arrange for her to have a CT scan of the thoracolumbar spine and get PT, OT to evaluate and treat. I will also check her phenytoin level tomorrow. MEHNAZ WETZEL MD DR: JOSELO/ceci JOB#: [id number] / [id number]
--- NOTE | 2018-03-04 00:47 | CONS ---
DATE OF CONSULTATION: NEUROLOGY CONSULTATION REASON FOR CONSULTATION: Acute mental status changes. HISTORY OF PRESENT ILLNESS: This is a 52-year-old right-handed female who was admitted through Emergency Room after she presented with chief complaints of frequent falls, confusions, behavior and steady stance. The patient stated she smoked methamphetamine last night when her friend visited her; however, she has been smoking methamphetamine since age of 40 and she have not smoked for 3 months until yesterday. The patient stated yesterday she slipped on the carpet and sustained a fall. She did not lose her consciousness. The patient recalls several falls in the last few days, but she does not remember why and how. The patient has had history of seizure and she has not been compliant with seizure medicine all the times. Currently, she states she has generalized headaches. She feels tired and steady and had blurred vision. She denies diplopia, dysphagia, or dysarthria. She also complains of generalized weakness. She denies chest pain or shortness of breath or palpitations. PAST MEDICAL HISTORY: Significant for seizure disorder, etiology uncertain, probably secondary to brain injuries, diverticulitis, hiatal hernia, GERD, chronic lower back pain, fibromyalgia, bipolar disorders, depressions, and substance abuse. SOCIAL HISTORY: The patient is single. She is a smoker and drinks alcohol occasionally and she smokes methamphetamine for many years. FAMILY HISTORY: Noncontributory. CURRENT HOME MEDICATIONS: She is supposed to take phenytoin 400 mg at bedtime, Latuda 40 mg at bedtime, gabapentin 300 mg t.i.d., Microzide 12.5 mg daily, Celexa 20 mg daily, Protonix 40 mg p.o. daily, losartan 50 mg daily, Linzess 290 mcg p.o. daily, Keppra 500 mg b.i.d., Flexeril 10 mg b.i.d., clonazepam 0.5 mg b.i.d., Benadryl 25 mg q. 6 hours p.r.n. for nausea and vomiting, and Zofran 4 mg IV p.r.n. for nausea. ALLERGIES: DIPHENHYDRAMINE, HYDROXYZINE, AND MORPHINE. REVIEW OF SYSTEMS: A 10-point review of system was performed and consistent with unsteady gait, confusion and this is probably to recent use of methamphetamine. PHYSICAL EXAMINATION: GENERAL: Well-developed, well-nourished white female, not in acute distress. She weighs 125 pounds. VITAL SIGNS: Blood pressure 106/72, respiratory rate 16, pulse is 82 and regular, temperature 98.2, oxygen saturation is 98% on room air. HEENT: Normocephalic, atraumatic, otherwise unremarkable. NECK: Supple. Negative for carotid bruit, lymphadenopathy or thyromegaly. LUNGS: Clear to A and P. CARDIOVASCULAR: Regular rhythm, normal S1, S2. ABDOMEN: Soft. Bowel sounds positive. EXTREMITIES: Negative for cyanosis, clubbing or pitting edema. NEUROLOGIC: 1. MENTAL STATUS: The patient is alert and oriented to place and she could not recall the month of the year. Speech is fluent. There is no language dysfunction. She recalls 2/3 immediately and 1/3 after 1 and 3 minutes. Judgment and abstracting thinking is fair. The patient denies hallucination or delusion. 2. CRANIAL NERVES: Visual segovia are full. The pupils are reactive to light and accommodation. The extraocular movements are intact. There is no nystagmus. There is no facial motor or sensory deficit. Hearing is intact bilaterally. The palate is elevated symmetrically. Sternocleidomastoid muscles are powerful bilaterally. The patient shrugs her shoulders symmetrically, protrudes her tongue in the midline without fasciculation or atrophy. 3. MOTOR: No focal muscle bulk was seen. The tone is normal. The strength is 5/5 throughout. 4. SENSORY EXAMINATION: Revealed normal pinprick and light touch senses throughout. 5. Deep tendon reflexes were symmetric and hypoactive with absent Achilles responses. 6. GAIT: The tandem gait is difficult, but the patient is able to walk in the room with a steady stance. DIAGNOSTIC DATA: Initial nonenhanced head CT scan, no acute intracranial process. Cervical CT scan, cervical spine CT scan revealed mild cervical spondylosis. LABORATORY DATA: CBC revealed white blood cells of 3.9 thousand, hemoglobin 13.5, hematocrit 39.9, platelet count 278,000. Chemistry revealed sodium 141, potassium 3.6, chloride 106, CO2 28, BUN 15, creatinine 0.9, glucose is 85 and calcium 8.4. Urinalysis is negative for urinary tract infections. Urine drug screen is positive for methamphetamine and opiates. IMPRESSION: 1. Acute encephalopathy and seizure disorder, presented with unsteady stance, tachycardia and confusion, likely due to underlying methamphetamine intoxications. 2. Multiple medical problems include hypertension, fibromyalgia, gastroesophageal reflux disease, diverticulitis. 3. Multiple psychiatric problems including bipolar disorders and anxiety disorders. RECOMMENDATIONS: 1. Continue with current management initiated by Dr. Sandhu including hydration and watch for tachycardia and withdrawal symptoms from methamphetamine. 2. Continue with current home medications. M Pancho BANERJEE MD DR: ALLA/ceci JOB#: [id number] / [id number]
[2018-03-04 06:01] VITALS: BP 98/64
[2018-03-04] MEDS: LINACLOTIDE 145 MCG CAPSULE. PO SCH (06:04)
[2018-03-04 06:39] LABS: HEMATOCRIT 38.6 % (36.0-47.0); HEMOGLOBIN 13.4 g/dL (12.0-15.5); RED BLOOD COUNT 4.05 x10^6/uL (3.50-5.40); RED CELL DISTRIBUTION WIDTH 12.5 % (11.5-14.5); WHITE BLOOD COUNT 4.3 x10^3/uL (4.0-11.0)
[2018-03-04 06:57] LABS: ALBUMIN 2.8 g/dL (3.4-5.0); ALBUMIN/GLOBULIN RATIO 0.8 (1.0-1.7); ALK PHOS 113 U/L (46-116); ALT (SGPT) 15 U/L (14-59); ANION GAP 6 (6-14); AST (SGOT) 11 U/L (15-37); BLOOD UREA NITROGEN 14 mg/dL (7-20); BUN/CREATININE RATIO 18 (6-20); C REACTIVE PROTEIN 5.1 mg/L (0-3.3); CALCIUM 8.5 mg/dL (8.5-10.1); CARBON DIOXIDE 26 mmol/L (21-32); CHLORIDE 108 mmol/L (98-107); CREATININE 0.8 mg/dL (0.6-1.0); GFR 75.3; GLUCOSE 79 mg/dL (70-99); PHENY 11.3 mcg/mL (10.0-20.0); POTASSIUM 4.1 mmol/L (3.5-5.1); SODIUM 140 mmol/L (136-145); TOTAL BILIRUBIN 0.2 mg/dL (0.2-1.0); TOTAL PROTEIN 6.5 g/dL (6.4-8.2)
[2018-03-04] MEDS: CYCLOBENZAPRINE 10 MG TABLET. PO SCH (08:55)
[2018-03-04] MEDS: CITALOPRAM 20 MG TABLET. PO SCH (08:56)
[2018-03-04] MEDS: clonazePAM 0.5 MG TABLET PO SCH (08:56)
[2018-03-04] MEDS: IBUPROFEN 800 MG TABLET. PO SCH (08:56)
[2018-03-04] MEDS: LOSARTAN 50 MG TABLET. PO SCH (08:56)
[2018-03-04] MEDS: BENZTROPINE MESYLATE 1 MG TABLET PO SCH (08:56)
[2018-03-04] MEDS: hydroCHLOROthiazide 12.5 MG CAPSULE PO SCH (08:56)
[2018-03-04] MEDS: PANTOPRAZOLE 40 MG TABLET. PO SCH (08:56)
[2018-03-04] MEDS: CETIRIZINE HCL 10 MG TABLET PO SCH (08:56)
[2018-03-04] MEDS: levETIRAcetam 500 MG TABLET PO SCH (08:56)
[2018-03-04] MEDS: GABAPENTIN 300 MG CAPSULE. PO SCH (08:56)
[2018-03-04] MEDS ORDERED: CITALOPRAM 20 MG TABLET. PO SCH (09:00)
[2018-03-04 11:07] VITALS: BP 106/74
--- NOTE | 2018-03-04 19:43 | PN ---
DATE: 03/04/2018 SUBJECTIVE: The patient is resting, slightly propped up, sleeping comfortably in her bed, in no apparent distress. She is arousable. She apparently has eaten her breakfast, managed to get up to the bathroom, her pain is much improved; however, she continued to be unsteady on her gait, even that she was assessed by the physical therapy. She voiced her desire to go home. I did recommend that she should stay as she continued to be unsteady and recommended that decision to be discharged will based on how she did with the physical therapist. PHYSICAL EXAMINATION: GENERAL: When I examined her in the morning, she looked well and was clearly in no apparent respiratory distress, pale, but no jaundice, cyanosis, or thyromegaly. No jugular venous distension. No limb edema. VITAL SIGNS: His heart rate was 86, blood pressure 106/74, temperature was 98, respiratory rate was 20, and oxygen saturation was 97%. HEAD, EYES, EARS, NOSE, AND THROAT: Normocephalic, atraumatic. NECK: Supple. HEART: Showed normal first and second sounds. No gallop, rub, or murmur. CHEST: Clear to auscultation. No crepitation or rhonchi. ABDOMEN: Distended, soft, nontender. No guarding or rigidity. No organomegaly. All hernial orifice intact. Bowel sounds normal. NEUROLOGIC: She was awake, alert, responding appropriately. All cranial nerves intact. She moves extremities without difficulty; however, she is clearly still unsteady with a walker and standby assist by physical therapist. LABORATORY DATA: Showed a white cell count 4300, hemoglobin 13, hematocrit 38, MCV 96, and platelet count of 252,000. Her chemistry showed serum sodium of 140, potassium 4.1, chloride 108, bicarbonate 26, anion gap of 6, BUN 14, creatinine 0.8, estimated GFR was 75 mL per minute. Her glucose was 79, calcium was 8.5, magnesium 2.1. Total bilirubin, AST, ALT, alkaline phosphatase were normal. Her total protein was 6.5, albumin 2.8. C-reactive protein was 5.1. Her Dilantin level was 11.3 which is well within therapeutic range. Urinalysis was unremarkable. She had had a CT scan of her thoracolumbar spine and both showed no acute thoracic spine fracture. There is multilevel thoracic degenerative disk disease and also multilevel nodes: There is hiatal hernia. There is no acute lumbar spine fracture identified. Again, the patient insisted that she wants to go home and basically we obviously have no authority to keep her against her will. Her family tried to convince her to stay, but she signed against medical advice. MEHNAZ WETZEL MD DR: JOSELO/ceci JOB#: [id number] / [id number]
== END 2018-03-04 13:33 | disposition left against medical advice (07) | DRG 894 ==
LOC: ER 17:34 → 1 SOUTH 21:00
PROVIDERS: ADMIT Internal Medicine; ATTEND Internal Medicine
DX: F15.129 Other stimulant abuse with intoxication, unspecified (principal); G93.40 Encephalopathy, unspecified; F17.200 Nicotine dependence, unspecified, uncomplicated; F41.9 Anxiety disorder, unspecified; F31.9 Bipolar disorder, unspecified; G40.409 Other generalized epilepsy and epileptic syndromes, not intractable, without status epilepticus; G89.29 Other chronic pain; I10 Essential (primary) hypertension; K21.9 Gastro-esophageal reflux disease without esophagitis; M06.9 Rheumatoid arthritis, unspecified; M70.20 Olecranon bursitis, unspecified elbow; M79.7 Fibromyalgia; R29.6 Repeated falls; W01.0XXA Fall on same level from slipping, tripping and stumbling without subsequent striking against object, initial encounter; Y93.89 Activity, other specified; Y92.89 Other specified places as the place of occurrence of the external cause; Y99.8 Other external cause status; Z80.8 Family history of malignant neoplasm of other organs or systems; Z82.49 Family history of ischemic heart disease and other diseases of the circulatory system; Z83.3 Family history of diabetes mellitus; Z90.49 Acquired absence of other specified parts of digestive tract; Z90.710 Acquired absence of both cervix and uterus; Z91.19 Patient's noncompliance with other medical treatment and regimen; Z88.5 Allergy status to narcotic agent; Z88.8 Allergy status to other drugs, medicaments and biological substances; Z79.899 Other long term (current) drug therapy; Z90.722 Acquired absence of ovaries, bilateral
CPT/HCPCS: 36415; 70450; 71045; 72125; 72128; 72131; 73080; 80048; 80053; 80185; 80307; 81001; 83735; 84484; 85025; 85027; 85651; 86140; 93005; 96365; 96375; J1953; J2060; Q2009; 99285-25; G0479; J7030

== ENCOUNTER 2020-03-12 17:41 | Emergency (ER) | payer MEDICARE, MEDICAID ==
[~2020-03-12] VITALS: Ht 162.6 cm; Wt 61.9 kg
[~2020-03-12 17:41] MED LIST changes: +CETI-282 PO; +CLON0.5T4 PO; +ESCITALOPRAM OX10 MG PO; -LAMO200T2 PO; +LAMO200T6 PO; +LURA40TA PO; +ONDA-84 PO; -ONDA4TAB11 PO
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
--- NOTE | 2020-03-12 19:18 | EKG ---
[address] [address] Test Date: 2020-03-12 Test Time: 19:08:41 Pat Name: NORMA POPE Department: Room: Gender: F Model Maker: : 1965 Requested By: VICKY WAITE Order Number: [id number] Reading MD: Measurements Intervals [place] Rate: 84 P: 33 TN: 130 QRS: -5 QRSD: 90 T: 37 QT: 392 QTc: 467 Interpretive Statements SINUS RHYTHM VENTRICULAR PREMATURE COMPLEX(ES) LEFTWARD AXIS ABNORMAL ECG RI6.02 No previous ECG available for comparison
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
[2020-03-12] MEDS ORDERED: ACETAMINOPHEN 500 MG TABLET PO ONE (20:45)
[2020-03-12 21:04] VITALS: BP 143/65
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
== END 2020-03-12 21:03 | disposition home or self-care (01) ==
LOC: ER 17:41 → EEVIPCON 17:41 → ER 21:03
DX: S00.01XA Abrasion of scalp, initial encounter (principal); M54.2 Cervicalgia; M25.512 Pain in left shoulder; M25.552 Pain in left hip; F31.9 Bipolar disorder, unspecified; F41.9 Anxiety disorder, unspecified; F03.90 Unspecified dementia, unspecified severity, without behavioral disturbance, psychotic disturbance, mood disturbance, and anxiety; I10 Essential (primary) hypertension; F17.210 Nicotine dependence, cigarettes, uncomplicated; Z88.5 Allergy status to narcotic agent; Z88.8 Allergy status to other drugs, medicaments and biological substances; Y08.89XA Assault by other specified means, initial encounter; Y93.89 Activity, other specified; Y92.89 Other specified places as the place of occurrence of the external cause; Y99.8 Other external cause status
CPT/HCPCS: 70450; 71045; 72125; 72170; 93005; 99285

== ENCOUNTER → 2020-05-23 | Outpatient (CLI) | payer MEDICARE, MEDICAID ==
[~2020-05-23] MED LIST changes: -PANT40TA5 PO; +PANT40TA6 PO
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
== END ==
LOC: RAD 16:16
DX: M20.092 Other deformity of left finger(s) (principal); M20.091 Other deformity of right finger(s)
CPT/HCPCS: 73130

== ENCOUNTER 2020-07-02 10:43 | Inpatient (IN) | payer MEDICARE, OTHER ==
[~2020-07-02] VITALS: Ht 160 cm; Wt 58.9 kg
--- NOTE | 2020-07-02 11:47 | EKG ---
[address] [address] Test Date: 2020-07-02 Test Time: 11:40:50 Pat Name: NORMA POPE Department: Room: Gender: F Dressage Judge: INESSA : 1965 Requested By: DOUGIE MARQUEZ Order Number: [id number] Reading MD: Measurements Intervals [place] Rate: 95 P: 37 SC: 122 QRS: -7 QRSD: 96 T: 57 QT: 356 QTc: 451 Interpretive Statements SINUS RHYTHM LEFTWARD AXIS OTHERWISE NORMAL ECG RI6.02 No previous ECG available for comparison
[2020-07-02 11:54] LABS: BASO % 0 % (0-3); EOS % 1 % (0-3); HEMATOCRIT 41.5 % (36.0-47.0); HEMOGLOBIN 13.8 g/dL (12.0-15.5); LYMPH # 0.6 x10^3/uL (1.0-4.8); LYMPH % 10 % (24-48); MEAN CORPUSCULAR HEMOGLOBIN 30 pg (25-35); MEAN CORPUSCULAR HGB CONC 33 g/dL (31-37); MEAN CORPUSCULAR VOLUME 91 fL (79-100); MONO # 0.7 x10^3/uL (0.0-1.1); MONO % 11 % (0-9); NEUT # 4.9 x10^3uL (1.8-7.7); NEUT % 78 % (31-73); PLATELET COUNT 310 x10^3/uL (140-400); RED BLOOD COUNT 4.55 x10^6/uL (3.50-5.40); RED CELL DISTRIBUTION WIDTH 13.5 % (11.5-14.5); WHITE BLOOD COUNT 6.3 x10^3/uL (4.0-11.0)
[2020-07-02 12:08] LABS: ANION GAP 10 (6-14); BLOOD UREA NITROGEN 16 mg/dL (7-20); BUN/CREATININE RATIO 16 (6-20); CALCIUM 8.5 mg/dL (8.5-10.1); CARBON DIOXIDE 25 mmol/L (21-32); CHLORIDE 98 mmol/L (98-107); GFR 57.8; GLUCOSE 98 mg/dL (70-99); POTASSIUM 3.3 mmol/L (3.5-5.1); SODIUM 133 mmol/L (136-145)
[2020-07-02 12:30] LABS: ALBUMIN 2.6 g/dL (3.4-5.0); ALBUMIN/GLOBULIN RATIO 0.5 (1.0-1.7); ALK PHOS 106 U/L (46-116); ALT (SGPT) 25 U/L (14-59); AST (SGOT) 28 U/L (15-37); TOTAL BILIRUBIN 0.7 mg/dL (0.2-1.0); TOTAL PROTEIN 8.3 g/dL (6.4-8.2)
--- NOTE | 2020-07-02 12:47 | PHYS DOC ---
Past History Past Medical History: Anxiety, Bipolar, Dementia, Hypertension, Seizure, Other Additional Past Medical Histor: METH USE Past Surgical History: Hysterectomy, Oophorectomy, Other Additional Past Surgical Histo: MULTIPLE ABD HERNIA REPAIRS; SMALL BOWEL RESECTION Smoking: Cigarettes Alcohol Use: Rarely Drug Use: Methamphetamine Social History Narrative: LAST USED COUPLE MONTHS AGO General Adult EDM: Chief Complaint: SHORTNESS OF BREATH HPI: HPI: 54-year-old female presents with report of shortness of breath, fever/chills, cough, generalized malaise, and body aches x10 days. Reports shortness of breath has been progressive. Patient was tested positive for COVID-19 on 06/27/2020. Patient also reports some associated nausea, vomiting, and diarrhea. Patient reports T-max 102.2. Patient did take 1000 mg of Tylenol this morning at 0600. Reports "I just do not feel good ". Review of Systems: Review of Systems: Constitutional: Reports fever and chills and generalized malaise Eyes: Denies redness or eye pain HENT: Denies nasal congestion or sore throat Respiratory: Reports cough and shortness of breath Cardiovascular: Denies chest pain or palpitations GI: Denies abdominal pain, nausea, or vomiting : Denies dysuria or hematuria Musculoskeletal: Denies back pain or joint pain Integument: Denies rash or skin lesions Neurologic: Reports headache; denies focal weakness or sensory changes Complete systems were reviewed and found to be within normal limits, except as documented in this note. Allergies: Allergies: Allergies Coded Allergies Type Severity Reaction Last Updated Verified diphenhydramine Allergy Intermediate 07/02/20 Yes hydroxyzine Allergy Intermediate 07/02/20 Yes morphine Allergy Intermediate 07/02/20 Yes Physical Exam: PE: Constitutional: Well developed, well nourished, no acute distress, appears ill but non-toxic HENT: Normocephalic, atraumatic Eyes: Conjunctiva normal, no discharge Neck: Normal range of motion, no tenderness, supple, no meningeal signs Lungs & Thorax: No respiratory distress, equal chest rise and fall Abdomen: Soft, no tenderness Skin: Warm, dry, no erythema, no rash Extremities: No tenderness, ROM intact, no edema Neurologic: Alert and oriented X 3, no focal deficits noted Psychologic: Affect normal, judgment normal Current Patient Data: Labs: Laboratory Tests Test 07/02/20 11:34 White Blood Count 6.3 x10^3/uL (4.0-11.0) Red Blood Count 4.55 x10^6/uL (3.50-5.40) Hemoglobin 13.8 g/dL (12.0-15.5) Hematocrit 41.5 % (36.0-47.0) Mean Corpuscular Volume 91 fL (79-100) Mean Corpuscular Hemoglobin 30 pg (25-35) Mean Corpuscular Hemoglobin Concent 33 g/dL (31-37) Red Cell Distribution Width 13.5 % (11.5-14.5) Platelet Count 310 x10^3/uL (140-400) Neutrophils (%) (Auto) 78 % (31-73) H Lymphocytes (%) (Auto) 10 % (24-48) L Monocytes (%) (Auto) 11 % (0-9) H Eosinophils (%) (Auto) 1 % (0-3) Basophils (%) (Auto) 0 % (0-3) Neutrophils # (Auto) 4.9 x10^3uL (1.8-7.7) Lymphocytes # (Auto) 0.6 x10^3/uL (1.0-4.8) L Monocytes # (Auto) 0.7 x10^3/uL (0.0-1.1) Eosinophils # (Auto) 0.0 x10^3/uL (0.0-0.7) Basophils # (Auto) 0.0 x10^3/uL (0.0-0.2) Prothrombin Time 9.9 SEC (9.4-11.4) Prothrombin Time INR 1.0 (0.9-1.1) Activated Partial Thromboplast Time 27 SEC (23-33) D-Dimer (Елена) 0.82 mg/L (0.00-0.50) H Sodium Level 133 mmol/L (136-145) L Potassium Level 3.3 mmol/L (3.5-5.1) L Chloride Level 98 mmol/L (98-107) Carbon Dioxide Level 25 mmol/L (21-32) Anion Gap 10 (6-14) Blood Urea Nitrogen 16 mg/dL (7-20) Creatinine 1.0 mg/dL (0.6-1.0) Estimated GFR (Cockcroft-Gault) 57.8 BUN/Creatinine Ratio 16 (6-20) Glucose Level 98 mg/dL (70-99) Lactic Acid Level 1.5 mmol/L (0.4-2.0) Calcium Level 8.5 mg/dL (8.5-10.1) Total Bilirubin 0.7 mg/dL (0.2-1.0) Aspartate Amino Transferase (AST) 28 U/L (15-37) Alanine Aminotransferase (ALT) 25 U/L (14-59) Alkaline Phosphatase 106 U/L (46-116) Creatine Kinase 43 U/L (26-192) Creatine Kinase MB (Mass) < 0.5 ng/mL (0.0-3.6) Creatine Kinase MB Relative Index % (0-4) Troponin I Quantitative < 0.017 ng/mL (0-0.055) HW-Nkn-I-Type Natriuretic Peptide 46 pg/mL (0-124) Total Protein 8.3 g/dL (6.4-8.2) H Albumin 2.6 g/dL (3.4-5.0) L Albumin/Globulin Ratio 0.5 (1.0-1.7) L Vital Signs: Vital Signs Date Time Temp Pulse Resp B/P (MAP) Pulse Ox O2 Delivery O2 Flow Rate FiO2 07/02/20 11:42 93 25 115/70 (85) 95 Room Air 07/02/20 10:58 99.3 EKG: EKG: @1140 NSR at 95bpm, NO ST elevation, QRS 96ms, QT/QTc 356/451ms Radiology/Procedures: Radiology/Procedures: PROCEDURE: CT ANGIOGRAPHY CHEST EXAM: CT ANGIOGRAPHY OF THE CHEST WITH AND WITHOUT CONTRAST. HISTORY: Shortness of breath, COVID-19. TECHNIQUE: Computed tomographic angiography of the chest was performed before and after the intravenous administration of iodinated contrast. 3-D maximum intensity projections were also performed. One or more of the following individualized dose reduction techniques were utilized for this examination: 1. Automated exposure control. 2. Adjustment of the mA and/or kV according to patient size. 3. Use of iterative reconstruction technique. COMPARISON: 11/28/2017. FINDINGS: Images of the upper abdomen reveal changes of Candelaria fundoplication. The Candelaria wrap is distended with gas currently. Bone windows reveal no suspicious lesions. Bilateral breast implants are noted. No pulmonary emboli are identified. There is no aortic dissection or aneurysm. Prominent mediastinal and hilar lymph nodes are likely reactive in this setting. One right hilar node measures 16 x 10 mm. There is no pleural or pericardial effusion. The heart is not enlarged. There are multifocal groundglass infiltrates throughout all lobes consistent with atypical pneumonia. IMPRESSION: 1. No pulmonary embolism. 2. Multifocal infiltrates are consistent with atypical pneumonia. 3. Correlate for Candelaria fundoplication. The wrapped portion is distended with gas. Electronically signed by: Emil Zarate MD (07/02/2020 2:09 PM) [facility] Course & Med Decision Making: Course & Med Decision Making Pertinent Labs and Imaging studies reviewed. (See chart for details) Patient presents with viral type symptoms consistent for known COVID-19 infection. Afebrile upon arrival. No respiratory distress noted. EKG stable. Labs obtained and posted to chart. Troponin within normal limits. WBC and lactic acid also within normal limits. D-dimer elevated. CTA chest obtained without signs of PE but noted groundglass opacities consistent for COVID-19 pneumonia. Empiric azithromycin provided. IV dexamethasone also initiated. During ER monitoring patient was noted to drop her O2 sats on room air down to 90%. Supplemental O2 via nasal cannula therefore provided with interval improvement. Patient requiring admission for further evaluation and treatment. Discussed with Dr. Sandhu (hospitalist) who is in agreement with admission. Discussed findings and plan with patient, who acknowledges understanding and agreement. COVID-19 CRITERIA: The patient was evaluated during the global COVID-19 pandemic, and that diagnosis was suspected/considered upon their initial presentation. Their evaluation, treatment and testing was consistent with current guidelines for patients who present with complaints or symptoms that may be related to COVID-19. Dragon Disclaimer: Dragon Disclaimer: This electronic medical record was generated, in whole or in part, using a voice recognition dictation system. Departure Departure: Impression: Primary Impression: Respiratory failure Qualified Codes: J96.01 - Acute respiratory failure with hypoxia Additional Impressions: Pneumonia due to COVID-19 virus Hypoxia Disposition: ADMITTED INPT THIS HOSP Admitting Physician: Daniel Sandhu Condition: GUARDED Referrals: NAVEEN LEAL (PCP) COVID-19 Assessment COVID-19 Patient Risks: Age 65 or older: No Sign of co-morbidity: Yes Exp to person + for COVID: Yes Exp to PUI: No Travel from affected area: No Lower respiratory symptoms: Yes Fever: Yes Other: Yes PPE Use: Full PPE with N95 mask or PAPR: Yes Critical Care Time Critical care time was 30 minutes which includes time at bedside, spent in discussion of patient's care with specialists and/or family members, with interpretation of laboratory and/or radiological studies and is exclusive of procedures. DOUGIE MARQUEZ DO Jul 02, 2020 12:47
[2020-07-02] MEDS ORDERED: CONTRAST GIVEN. MC PRN (13:15)
[2020-07-02] MEDS ORDERED: IOHEXOL 350 MG/ML 100 ML VIAL. IV ONE (13:15)
--- NOTE | 2020-07-02 14:11 | RAD ---
EXAM: CT ANGIOGRAPHY OF THE CHEST WITH AND WITHOUT CONTRAST. HISTORY: Shortness of breath, COVID-19. TECHNIQUE: Computed tomographic angiography of the chest was performed before and after the intravenous administration of iodinated contrast. 3-D maximum intensity projections were also performed. One or more of the following individualized dose reduction techniques were utilized for this examination: 1. Automated exposure control. 2. Adjustment of the mA and/or kV according to patient size. 3. Use of iterative reconstruction technique. COMPARISON: 11/28/2017. FINDINGS: Images of the upper abdomen reveal changes of Candelaria fundoplication. The Candelaria wrap is distended with gas currently. Bone windows reveal no suspicious lesions. Bilateral breast implants are noted. No pulmonary emboli are identified. There is no aortic dissection or aneurysm. Prominent mediastinal and hilar lymph nodes are likely reactive in this setting. One right hilar node measures 16 x 10 mm. There is no pleural or pericardial effusion. The heart is not enlarged. There are multifocal groundglass infiltrates throughout all lobes consistent with atypical pneumonia. IMPRESSION: 1. No pulmonary embolism. 2. Multifocal infiltrates are consistent with atypical pneumonia. 3. Correlate for Candelaria fundoplication. The wrapped portion is distended with gas. Electronically signed by: Emil Zarate MD (07/02/2020 2:09 PM) [facility]
[2020-07-02] MEDS ORDERED: AZITHROMYCIN 500 MG in IV NORMAL SALINE 250ML 250 ML IV ONE (15:00)
[2020-07-02] MEDS ORDERED: AZITHROMYCIN 500 MG VIAL. IV ONE (15:19)
[2020-07-02] MEDS ORDERED: IV NORMAL SALINE 250ML 250 ML ONE (15:19)
[2020-07-02] MEDS ORDERED: ONDANSETRON PF 4 MG/2 ML VIAL. IVP PRN (15:45)
[2020-07-02] MEDS ORDERED: ACETAMINOPHEN 325 MG TABLET PO PRN (15:45)
[2020-07-02 15:57] LABS: PHENY 0.7 mcg/mL (10.0-20.0)
[2020-07-02 18:09] VITALS: BP 109/68
--- NOTE | 2020-07-02 18:10 | NUR ---
Patient arrived on unit via EMS escorted by [facility] ED personnel and accompanied by personal belongings. She transferred herself from the gurney to the bed. Patient has two PIVs, a 20g in her right wrist and a 20g in her left forearm, both saline locked. She is on O2 at 2L via nasal cannula; she has an intermittent wet cough. Patient unable to name home medications, states her will call with her home medication list. paged, will monitor and report to oncoming shift.
[2020-07-02 18:19] VITALS: BP 109/68
[2020-07-02] MEDS ORDERED: RIZA10TA PO (19:05)
[2020-07-02 19:37] VITALS: BP 106/55
[2020-07-02 22:13] VITALS: BP 103/71
[2020-07-03] MEDS ORDERED: BISACODYL TAB 5 MG TABLET.DR. PO PRN (05:00)
[2020-07-03 05:12] VITALS: BP 103/71
[2020-07-03] MEDS ORDERED: ONDANSETRON ODT 4 MG TAB.RAPDIS PO PRN (05:15)
[2020-07-03] MEDS ORDERED: SUMAtriptan SUCCINATE 50 MG TABLET PO PRN (05:15)
[2020-07-03] MEDS ORDERED: LUBIPROSTONE 24 MCG CAPSULE PO PRN (05:15)
[2020-07-03] MEDS ORDERED: hydroCHLOROthiazide 12.5 MG CAPSULE PO SCH (09:00)
[2020-07-03] MEDS ORDERED: FLU VACC QS 2020-21(6MOS+)/PF 0.5 ML SYRINGE. VAX IM ONE (09:00)
[2020-07-03 11:18] VITALS: BP 112/71
[2020-07-03] MEDS: BENZTROPINE MESYLATE 1 MG TABLET PO SCH ×3 (11:52→21:00)
[2020-07-03] MEDS: CETIRIZINE HCL 10 MG TABLET PO SCH (11:53)
[2020-07-03] MEDS: GABAPENTIN 300 MG CAPSULE. PO SCH ×3 (11:53→20:08)
[2020-07-03] MEDS: CYCLOBENZAPRINE 10 MG TABLET. PO SCH ×3 (11:53→21:00)
[2020-07-03] MEDS: clonazePAM 0.5 MG TABLET PO SCH ×3 (11:53→21:00)
[2020-07-03] MEDS: LOSARTAN 50 MG TABLET. PO SCH (11:53)
[2020-07-03] MEDS: IBUPROFEN 800 MG TABLET. PO SCH ×2 (11:53→15:56)
[2020-07-03] MEDS: levETIRAcetam 500 MG TABLET PO SCH ×3 (11:54→21:00)
[2020-07-03] MEDS: PANTOPRAZOLE 40 MG TABLET. PO SCH (11:54)
[2020-07-03] MEDS: AZITHROMYCIN 250 MG TABLET. PO SCH (11:54)
[2020-07-03] MEDS: CITALOPRAM 20 MG TABLET. PO SCH (11:54)
--- NOTE | 2020-07-03 15:03 | NUR ---
Patients was outside the window with her son. She stood up to wave and yell at them, her BP went to 207/191, then 153/135, 5 minutes later it was 89/64 and then stablized out at 94/79. Patient was assisted to bed and put back on PRN oxygen 2L. Patient stated she was excited and then somewhat tearful at this sign because she was looking out the window. Dr Sandhu advised, as he was here on the unit when this occurred.
--- NOTE | 2020-07-03 15:07 | NUR ---
FLu shot rescheduled until patients COVID comes back. Currently PUI. Discussed this with Dr Sandhu.
[2020-07-03 15:29] VITALS: BP 94/63
--- NOTE | 2020-07-03 15:56 | NUR ---
Patients spouse called to check on patients condition. Patient had told patient that she has a blood clot. CT lungs does not show a PE. Nurse will speak with patient regarding this and provide education. Patients spouse stated that patient had a positive COVID test at [facility] urgent care in [place] a "few days ago".
--- NOTE | 2020-07-03 17:00 | NUR ---
Patient has had window open all day, stating she likes the cold. Patient seemed to be over-exagerative when given her Dexmethasone via IV (stating, oh the pain, help me, help me). She was almost crying after the injection. She was also upset about having to have a lovenox injection in her abdomen. Education provided regarding COVID and blood clots. Patient tearful and stated she understood that she needed the medications. Patient then asked for window to be closed, window closed, shades pulled and patient is resting in bed.
[2020-07-03] MEDS: DEXAMETHASONE SOD PHOS 4 MG/ML VIAL. IVP SCH (18:52)
[2020-07-03] MEDS: ENOXAPARIN 40 MG/0.4 ML SYRINGE. SQ SCH (18:52)
--- NOTE | 2020-07-03 19:40 | HP ---
ADMIT DATE: 07/02/2020 HISTORY OF PRESENT ILLNESS: The patient is a 54-year-old female patient who came to the Emergency Room with a complaint of shortness of breath, fever, chills, cough, generalized malaise and body aches for almost 2 weeks. She reports that her shortness of breath, has been progressive. She was tested positive for COVID on 06/27/2020. She has also reported some associated nausea, vomiting as well as diarrhea. She reports maximum temperature of 102.2. The patient did take 1000 mg of Tylenol in the morning of admission and when she arrived to the Emergency Room, she said that she just does not feel good. She was extensively investigated in the Emergency Room including lab work with a CBC that was unremarkable. Her chemistry showed he has mild hyponatremia and hypokalemia. She also has hypoalbuminemia. Her D-dimer was slightly elevated; however, prothrombin time, INR and aPTT are all normal. Her toxic screen showed that her phenytoin level was less than 0.7. She had had a CT angio of the chest, which basically showed no evidence of pulmonary emboli. She has multifocal infiltrates are consistent with atypical pneumonia. She also has what seemed to have a Candelaria fundoplication. The wrap portion is distended with gas and she was admitted with COVID-19 pneumonia, acute hypoxic respiratory failure and was continued on IV ceftriaxone as well as Zithromax. PAST MEDICAL HISTORY: Significant for hypertension, anxiety, bipolar disorder, dementia, and seizure disorders. She also has migraine headache and gastroesophageal reflux disease and severe constipation. PAST SURGICAL HISTORY: Significant for tonsillectomy and adenoidectomy, total abdominal hysterectomy, bilateral salpingo-oophorectomy, bowel resection, multiple hernia repair and Candelaria fundoplication for severe gastroesophageal reflux disease. ALLERGIES: She is allergic TO DIPHENHYDRAMINE, HYDROXYZINE, AND MORPHINE. MEDICATIONS: She is currently on cetirizine 10 mg once a day, cyclobenzaprine 10 mg twice a day, losartan/hydrochlorothiazide 50/12.5 once a day, ibuprofen 800 mg 3 times a day, clonazepam 0.5 mg twice a day, phenytoin extended release 400 mg capsules at bedtime. She is on gabapentin 300 mg 3 times a day, levetiracetam 500 mg twice a day, escitalopram oxalate 10 mg daily, rizatriptan for Maxalt 10 mg daily as needed. She is on benztropine mesylate 2 mg twice a day. She is on bisacodyl 50 mg p.o. daily. She is on ondansetron 8 mg 3 times a day, Protonix 40 mg daily. She is on linaclotide for Linzess 290 mcg daily. FAMILY HISTORY: She has 4 sisters and 1 brother. The patient stated that most of her family members have hypertension, diabetes and congestive heart failure. Her father at age of 71. Her mother is still alive at the age of 68. SOCIAL HISTORY: She is , never smoked, does not drink alcohol or use any drugs. She is currently on disability. REVIEW OF SYSTEMS: As per history of present illness. PHYSICAL EXAMINATION: GENERAL: On arrival to the Emergency Room, the patient was somewhat cachectic, but there is no pallor, jaundice, cyanosis, or thyromegaly. No jugular venous distension. No limb edema. VITAL SIGNS: Her heart rate was 92, blood pressure was 132/77, temperature was 99.3, respiratory rate was 26 and oxygen saturation was 95% on room air. HEAD, EYES, EARS, NOSE AND THROAT: Showed normocephalic, atraumatic. NECK: Supple. HEART: Showed normal first and second heart sounds. No gallop, rub or murmur. CHEST: Shows central trachea, equal bilateral chest expansion, air entry, vesicular sounds. I could not appreciate any crepitation or rhonchi. ABDOMEN: Scaphoid, soft, nontender. NEUROLOGIC: She is awake, alert, responding appropriately. EXTREMITIES: She moves her extremities without difficulty. She is edentulous. LABORATORY DATA: Her lab work on arrival showed a white cell count of 8300, hemoglobin 13.8, hematocrit 41, MCV 91, and platelet count of 310,000 with normal manual differential. Her chemistry showed a serum sodium 133, potassium 3.3, chloride 98, bicarbonate 25, anion gap of 10, BUN 16, creatinine 1, estimated GFR was 58 mL per minute. Her glucose was 98, lactic acid is 1.5, calcium was 8.5. Total bilirubin, AST, ALT, alkaline phosphatase were normal. Her total protein was 8.3, albumin was 2.6. Her prothrombin time, INR and aPTT are normal. D-dimer was slightly elevated at 0.82. She had a CT angio of the chest, which showed that images of the upper abdomen reveals changes of Candelaria fundoplication. Candelaria probably distended with gas currently. Bone windows reveal no suspicious lesions. Bilateral breast implants are noted. No pulmonary emboli identified. There is no aortic dissection or aneurysm. Prominent mediastinal and hilar lymph nodes are likely reactive in this setting. One right hilar node measures 16 x 1 mm. There is no pleural or pericardial effusion. The heart is not enlarged. There are multifocal ground glass infiltrates throughout all lobes consistent with atypical pneumonia. ASSESSMENT: The patient was admitted with COVID-19 pneumonia, acute hypoxic respiratory failure, hypokalemia, mild hyponatremia. She has seizure disorder, severe constipation, and migraine headache. PLAN: My plan is to continue obviously with IV antibiotic. I will discontinue her hydrochlorothiazide for now. I will obviously follow her labs closely and decide on further management accordingly. MEHNAZ WETZEL MD DR: JOSELO/ceci JOB#: [id number] / [id number]
[2020-07-03] MEDS: LACTOBACILLUS RHAMNOSUS GG 1 CAPSULE. PO SCH ×2 (20:08→21:00)
[2020-07-03] MEDS: PHENYTOIN SODIUM EXTENDED 100 MG CAPSULE PO SCH ×2 (20:08→21:00)
[2020-07-03 20:25] VITALS: BP 81/53
[2020-07-03] MEDS ORDERED: IV NORMAL SALINE 500ML 500 ML IV ONE (20:45)
[2020-07-03 21:28] LABS: BARBITURATES NEG (NEG); BENZODIAZEPINES NEG (NEG); CANNABINOIDS NEG (NEG); COCAINE NEG (NEG); METHADONE NEG (NEG); OPIATES NEG (NEG); PHENCYCLIDINE NEG (NEG)
[2020-07-03 21:31] LABS: AMPHETAMINE/METHAMPHETAMINE POS (NEG)
[2020-07-03 22:48] VITALS: BP 91/62
--- NOTE | 2020-07-04 03:17 | NUR ---
VS obtained at shift change. BP was 91/62. Pt lethargic and would only open eyes briefly when name was called. Pt's HS meds were held to prevent aspiration. Dr. Sandhu notified of pt status, UDS and 500mL bolus were ordered. UDS positive for methamphetamine. Pt admits to abusing drugs but stated the last time she did was over 4 months ago. Pt called around 0300 in the night for snack and appeared to be less sedated. Pt spoke w/ instructor of nursing where she expressed how she was concerned to return home with . CM is consulted and will continue to monitor.
[2020-07-04 05:33] VITALS: BP 101/62
[2020-07-04 06:09] LABS: HEMATOCRIT 38.1 % (36.0-47.0); HEMOGLOBIN 12.5 g/dL (12.0-15.5); RED BLOOD COUNT 4.13 x10^6/uL (3.50-5.40); RED CELL DISTRIBUTION WIDTH 13.1 % (11.5-14.5); WHITE BLOOD COUNT 2.7 x10^3/uL (4.0-11.0)
[2020-07-04 06:25] LABS: ALBUMIN 2.1 g/dL (3.4-5.0); ALBUMIN/GLOBULIN RATIO 0.4 (1.0-1.7); CALCIUM 8.6 mg/dL (8.5-10.1); CREATININE 0.9 mg/dL (0.6-1.0); GFR 65.2; POTASSIUM 3.7 mmol/L (3.5-5.1); TOTAL BILIRUBIN 0.2 mg/dL (0.2-1.0); TOTAL PROTEIN 7.4 g/dL (6.4-8.2)
[2020-07-04] MEDS: LACTOBACILLUS RHAMNOSUS GG 1 CAPSULE. PO SCH ×2 (08:46→21:48)
[2020-07-04] MEDS: levETIRAcetam 500 MG TABLET PO SCH ×2 (08:46→21:50)
[2020-07-04] MEDS: GABAPENTIN 300 MG CAPSULE. PO SCH ×3 (08:46→21:48)
[2020-07-04] MEDS: DEXAMETHASONE SOD PHOS 4 MG/ML VIAL. IVP SCH (08:46)
[2020-07-04] MEDS: CETIRIZINE HCL 10 MG TABLET PO SCH (08:46)
[2020-07-04] MEDS: CITALOPRAM 20 MG TABLET. PO SCH (08:46)
[2020-07-04] MEDS: PANTOPRAZOLE 40 MG TABLET. PO SCH (08:46)
[2020-07-04] MEDS: CYCLOBENZAPRINE 10 MG TABLET. PO SCH ×2 (08:46→21:49)
[2020-07-04] MEDS: BENZTROPINE MESYLATE 1 MG TABLET PO SCH ×2 (08:46→21:50)
[2020-07-04] MEDS: LOSARTAN 50 MG TABLET. PO SCH (08:47)
[2020-07-04] MEDS: clonazePAM 0.5 MG TABLET PO SCH ×2 (08:47→21:48)
[2020-07-04] MEDS: AZITHROMYCIN 250 MG TABLET. PO SCH (08:47)
[2020-07-04] MEDS ORDERED: FLU VACC QS 2020-21(6MOS+)/PF 0.5 ML SYRINGE. VAX IM ONE (09:00)
[2020-07-04 10:53] VITALS: BP 134/78
--- NOTE | 2020-07-04 12:00 | NUR ---
Pt requested food be brought in by . Pt up adl in room.
[2020-07-04 14:28] VITALS: BP 108/76
--- NOTE | 2020-07-04 16:50 | PN ---
DATE: SUBJECTIVE: The patient is resting, slightly propped up in bed, continued to complain of generalized aches and pains, continued to have cough, headache; however, she has had no further episodes of fever. PHYSICAL EXAMINATION: GENERAL: When I examined her, she looked well and was clearly in no apparent respiratory distress. No pallor, jaundice, cyanosis or thyromegaly. No jugular venous distention. No limb edema. VITAL SIGNS: Her heart rate was 91, blood pressure was 99/69, temperature was 99.3, respiratory rate was 20, and oxygen saturation was 93% on room air. HEAD, EYES, EARS, NOSE AND THROAT: Showed normocephalic, atraumatic. NECK: Supple. HEART: Showed normal first and second heart sounds. No gallop, rub or murmur. CHEST: Clear to auscultation. No crepitation or rhonchi. ABDOMEN: Scaphoid, soft, nontender. NEUROLOGIC: She was awake, alert, responding appropriately. All cranial nerves are intact. She moves extremities without difficulty, but she is mostly bedbound. Her intake and output were incompletely recorded. LABORATORY DATA: No lab work done this morning. ASSESSMENT: 1. COVID-19 pneumonia. 2. Acute hypoxic respiratory failure. 3. Hypertension. 4. Seizure disorder. 5. Migraine headaches. 6. Restless leg syndrome. 7. Hypokalemia. 8. Hyponatremia. PLAN: I have discontinued her hydrochlorothiazide as well as ibuprofen and started on dexamethasone and started on Lovenox. We will continue obviously with IV antibiotic and anti-seizure medication as well as losartan for hypertension. MEHNAZ WETZEL MD DR: JOSELO/ceci JOB#: [id number] / [id number]
[2020-07-04] MEDS: ENOXAPARIN 40 MG/0.4 ML SYRINGE. SQ SCH (18:00)
--- NOTE | 2020-07-04 18:00 | NUR ---
Pt has not eaten well today. Pt dislodged IV. Attempted to place 20 g in L hand . Good blood return but blew with flush. shiftman will attempt placement. Pt lungs diminished. Dry cough noted.
[2020-07-04 19:43] VITALS: BP 107/76
[2020-07-04] MEDS: PHENYTOIN SODIUM EXTENDED 100 MG CAPSULE PO SCH (21:48)
[2020-07-04 22:34] VITALS: BP 112/83
[2020-07-05 05:57] VITALS: BP 106/76
[2020-07-05] MEDS: GABAPENTIN 300 MG CAPSULE. PO SCH ×3 (08:22→21:13)
[2020-07-05] MEDS: clonazePAM 0.5 MG TABLET PO SCH (08:22)
[2020-07-05] MEDS: CITALOPRAM 20 MG TABLET. PO SCH (08:22)
[2020-07-05] MEDS: AZITHROMYCIN 250 MG TABLET. PO SCH (08:23)
[2020-07-05] MEDS: BENZTROPINE MESYLATE 1 MG TABLET PO SCH ×2 (08:23→21:14)
[2020-07-05] MEDS: CYCLOBENZAPRINE 10 MG TABLET. PO SCH ×2 (08:23→21:13)
[2020-07-05] MEDS: LACTOBACILLUS RHAMNOSUS GG 1 CAPSULE. PO SCH ×2 (08:23→21:13)
[2020-07-05] MEDS: levETIRAcetam 500 MG TABLET PO SCH ×2 (08:23→21:13)
[2020-07-05] MEDS: PANTOPRAZOLE 40 MG TABLET. PO SCH (08:23)
[2020-07-05] MEDS: LOSARTAN 50 MG TABLET. PO SCH (08:23)
[2020-07-05] MEDS: CETIRIZINE HCL 10 MG TABLET PO SCH (08:23)
[2020-07-05] MEDS: DEXAMETHASONE SOD PHOS 4 MG/ML VIAL. IVP SCH (09:00)
--- NOTE | 2020-07-05 09:27 | NUR ---
two nurses attempted to start a IV 3 times and was unsuccessful. Dr. milligan will be notified. Patient currently enjoying breakfast.
[2020-07-05 11:08] VITALS: BP 98/66
--- NOTE | 2020-07-05 13:24 | NUR ---
Doctor ordered PICC but pt on rocephin and IV steriod, both safe for midline infusion, inserted midline per sterile procedure, pt given lidocaine for pain, used [employer] tech for insertion and sono. pt tolerated well. good blood return with tourniquet flushes easily.
[2020-07-05 14:59] VITALS: BP 100/62
[2020-07-05] MEDS: ENOXAPARIN 40 MG/0.4 ML SYRINGE. SQ SCH (16:26)
--- NOTE | 2020-07-05 18:05 | PN ---
DATE: SUBJECTIVE: The patient is resting, slightly propped up in bed, in no apparent respiratory distress. She is actually awake, alert, continued to complain of aches and pains; however, her oxygen saturation was 94% on room air today. Nursing staff did not voice any concern. PHYSICAL EXAMINATION: GENERAL: When I examined her, she looked well with no pallor, jaundice, cyanosis or thyromegaly. No jugular venous distention. No limb edema. VITAL SIGNS: Her heart rate was 72, blood pressure was 108/76, temperature 97.6, respiratory rate was 20, and oxygen saturation was 94% on room air. HEAD, EYES, EARS, NOSE AND THROAT: Showed normocephalic and atraumatic. NECK: Supple. CARDIAC: Normal first and second heart sounds. No gallop or murmur. CHEST: Clear to auscultation. No crepitation or rhonchi. ABDOMEN: Distended, soft, nontender. NEUROLOGIC: She was awake, alert. All her cranial nerves intact. She moves extremities without difficulty. Her intake was 1130. No output was recorded. LABORATORY DATA: Her lab work this morning showed a white cell count of 2700, hemoglobin 12.5, hematocrit 38, MCV 92, and platelet count 348,000. Her serum sodium was 140, potassium 3.7, chloride 106, bicarbonate 22, anion gap of 12, BUN 17, creatinine 0.9, estimated GFR was 65 mL per minute. Her glucose was 204, calcium was 8.6, lactic acid was 1.5. Total bilirubin, AST, ALT, alkaline phosphatase were normal. Total protein 7.4, albumin 2.1. Her D-dimer was 0.82. PT, INR and aPTT are all normal. ASSESSMENT: 1. COVID-19 pneumonia. 2. Acute hypoxic respiratory failure, slightly improved. 3. Hypertension, well controlled. 4. Seizure disorder, well controlled. 5. Migraine headache. 6. Restless leg syndrome. 7. Hypokalemia. 8. Hyponatremia, both of these have resolved. PLAN: To continue with IV antibiotic. I held her hydrochlorothiazide as well as ibuprofen and continued Lovenox for DVT prophylaxis. Continue with all other medications. We will follow her closely and adjust her medication as needed. AHMED M. DAMARI, MD DR: JOSELO/ceci JOB#: [id number] / [id number]
[2020-07-05 18:58] VITALS: BP 108/76
[2020-07-05] MEDS: PHENYTOIN SODIUM EXTENDED 100 MG CAPSULE PO SCH (21:13)
[2020-07-05 23:55] VITALS: BP 115/81
--- NOTE | 2020-07-06 07:18 | NUR ---
Nursing Note The patient has been drowsy but compliant this shift. the patient was very drowsy this shift and in fact slept for the majority of this shift. Once this nurse was able to wake the patient the patient was compliant with her assessment and was A&Ox4. The patients lung sounds are diminished but clear, bowels are active. The patient denies pain at this time.
[2020-07-06] MEDS: CITALOPRAM 20 MG TABLET. PO SCH (08:54)
[2020-07-06] MEDS: BENZTROPINE MESYLATE 1 MG TABLET PO SCH ×2 (08:54→20:43)
[2020-07-06] MEDS: AZITHROMYCIN 250 MG TABLET. PO SCH (08:54)
[2020-07-06] MEDS: LOSARTAN 50 MG TABLET. PO SCH (08:54)
[2020-07-06] MEDS: GABAPENTIN 300 MG CAPSULE. PO SCH ×2 (08:54→14:01)
[2020-07-06] MEDS: levETIRAcetam 500 MG TABLET PO SCH ×2 (08:54→20:42)
[2020-07-06] MEDS: PANTOPRAZOLE 40 MG TABLET. PO SCH (08:54)
[2020-07-06] MEDS: LACTOBACILLUS RHAMNOSUS GG 1 CAPSULE. PO SCH ×2 (08:55→20:42)
[2020-07-06] MEDS: CYCLOBENZAPRINE 10 MG TABLET. PO SCH (08:55)
[2020-07-06] MEDS: CETIRIZINE HCL 10 MG TABLET PO SCH (08:55)
[2020-07-06] MEDS: DEXAMETHASONE SOD PHOS 4 MG/ML VIAL. IVP SCH (08:55)
[2020-07-06 10:11] VITALS: BP 109/80
[2020-07-06] MEDS ORDERED: FLU VACC QS 2020-21(6MOS+)/PF 0.5 ML SYRINGE. VAX IM ONE (12:15)
--- NOTE | 2020-07-06 13:12 | PN ---
DATE: 07/05/2020 SUBJECTIVE: The patient is resting, slightly propped up in bed, very sleepy and does not seem to be in any respiratory distress. Nursing staff did not voice any concerns that she did very well this morning. She is on clonazepam. However, given her severe worsening somnolence, I will stop the clonazepam for now. PHYSICAL EXAMINATION: GENERAL: When I examined her, she looked well and was clearly in no apparent respiratory distress. No pallor, jaundice, cyanosis, or thyromegaly. No jugular venous distension. No limb edema. VITAL SIGNS: Her heart rate was 75, blood pressure 100/62, temperature was 97, respiratory rate 20, and oxygen saturation was 93% on room air. HEAD, EYES, EAR, NOSE AND THROAT: Normocephalic, atraumatic. NECK: Supple. HEART: Showed normal first and second heart sounds. No gallop or murmur. CHEST: Clear to auscultation. No crepitation or rhonchi. ABDOMEN: Distended, soft, nontender. NEUROLOGIC: She was sleepy, but arousable. She moves extremities without difficulty. Her intake was 1680, no output was recorded. LABORATORY DATA: Showed a serum sodium 140, potassium 3.7, chloride 106, bicarbonate 22, anion gap of 12, BUN 17, creatinine 0.9, estimated GFR was 65 mL per minute. Her glucose 204, calcium was 8.6. Total bilirubin, AST, ALT, alkaline phosphatase were normal. Total protein 7.4, albumin was 2.1. Her white cell count was 2,700, hemoglobin 12.5, hematocrit 38, MCV 92, and platelet count of 348,000. Her D-dimer was 0.82. Her CT angio of the chest showed no pulmonary embolism, but multifocal infiltrate consistent with atypical pneumonia. So far, her blood cultures showed no growth after 2 days. ASSESSMENT: 1. COVID-19 pneumonia. 2. Acute hypoxic respiratory failure. 3. Hypertension. 4. Seizure disorder. 5. Migraine headache. 6. Restless leg syndrome. 7. Hypokalemia, resolved. 8. Hyponatremia, resolved. PLAN: To continue with IV antibiotic. Continue with dexamethasone. Continue with Lovenox. We will start the process of physical and occupational therapy. I have discontinued her clonazepam as she seemed to be excessively sedated and there was some suggestion that she might be getting some drugs from outside. MEHNAZ WETZEL MD DR: JOSELO/ceci JOB#: [id number] / [id number]
[2020-07-06 14:28] VITALS: BP 110/86
[2020-07-06] MEDS: ENOXAPARIN 40 MG/0.4 ML SYRINGE. SQ SCH (17:18)
[2020-07-06 19:40] VITALS: BP 133/86
[2020-07-06] MEDS: PHENYTOIN SODIUM EXTENDED 100 MG CAPSULE PO SCH (20:42)
[2020-07-06 23:20] VITALS: BP 114/84
--- NOTE | 2020-07-07 02:06 | PN ---
DATE: 07/06/2020 SUBJECTIVE: The patient is resting, slightly propped up, extremely lethargic. She could hardly open her eyes. She definitely not short of breath or any respiratory distress. She is maintaining her oxygen saturation at 94% on room air. I did discontinue her clonazepam yesterday and I have discontinued also her Flexeril and gabapentin today as she continued to be extremely lethargic and there was suggestion that her might have brought something to her when they brought food to her and therefore, I instructed the nursing staff not to accept any food or any of the items from the family. PHYSICAL EXAMINATION: GENERAL: When I examined her this afternoon, she looked well and was clearly in no apparent respiratory distress. No pallor, jaundice, cyanosis or thyromegaly. No jugular venous distention. No limb edema. VITAL SIGNS: Her heart rate was 80, blood pressure was 110/86, temperature was 97.4, respiratory rate was 20, and oxygen saturation was 94% on room air. HEAD, EYES, EARS, NOSE AND THROAT: Showed normocephalic, atraumatic. NECK: Supple. HEART: Showed normal first and second heart sounds. No gallop, rub or murmur. CHEST: Clear to auscultation. No crepitation or rhonchi. ABDOMEN: Distended, soft, nontender. NEUROLOGIC: She is very lethargic, but arousable. All her cranial nerves intact. She moves extremities spontaneously. Her intake was 1140, no output was recorded. No lab works were available today. So far, her blood cultures showed no growth after 3 days. ASSESSMENT: 1. COVID-19 pneumonia. 2. Acute hypoxic respiratory failure, improving. 3. Hypertension. 4. Seizure disorder. 5. Migraine headache. 6. Restless leg syndrome. 7. Hypokalemia, resolved. 8. Hyponatremia, resolved. PLAN: To continue IV antibiotic. Continue with dexamethasone. Continue with Lovenox. I did discontinue her clonazepam, Flexeril and gabapentin. MEHNAZ WETZEL MD DR: JOSELO/ceci JOB#: [id number] / [id number]
[2020-07-07 06:30] VITALS: BP 130/89
[2020-07-07] MEDS ORDERED: ALTEPLASE 2 MG VIAL INT CAT ONE (07:00)
[2020-07-07] MEDS: AZITHROMYCIN 250 MG TABLET. PO SCH (07:46)
[2020-07-07] MEDS: CITALOPRAM 20 MG TABLET. PO SCH (07:46)
[2020-07-07] MEDS: CETIRIZINE HCL 10 MG TABLET PO SCH (07:46)
[2020-07-07 07:47] VITALS: BP 130/89
[2020-07-07] MEDS: DEXAMETHASONE SOD PHOS 4 MG/ML VIAL. IVP SCH (07:47)
[2020-07-07] MEDS: LOSARTAN 50 MG TABLET. PO SCH (07:47)
[2020-07-07] MEDS: PANTOPRAZOLE 40 MG TABLET. PO SCH (07:47)
[2020-07-07] MEDS: levETIRAcetam 500 MG TABLET PO SCH (07:47)
[2020-07-07] MEDS: LACTOBACILLUS RHAMNOSUS GG 1 CAPSULE. PO SCH (07:47)
[2020-07-07] MEDS: BENZTROPINE MESYLATE 1 MG TABLET PO SCH (07:48)
[2020-07-07 09:13] LABS: ALBUMIN/GLOBULIN RATIO 0.4 (1.0-1.7); CALCIUM 8.5 mg/dL (8.5-10.1); CREATININE 0.8 mg/dL (0.6-1.0); GFR 74.7; POTASSIUM 3.7 mmol/L (3.5-5.1); TOTAL BILIRUBIN 0.1 mg/dL (0.2-1.0); TOTAL PROTEIN 6.7 g/dL (6.4-8.2)
[2020-07-07 09:17] LABS: HEMATOCRIT 36.7 % (36.0-47.0); HEMOGLOBIN 12.2 g/dL (12.0-15.5); RED BLOOD COUNT 3.97 x10^6/uL (3.50-5.40); RED CELL DISTRIBUTION WIDTH 13.3 % (11.5-14.5); WHITE BLOOD COUNT 5.3 x10^3/uL (4.0-11.0)
--- NOTE | 2020-07-07 12:34 | NUR ---
NSG NOTE; [facility] PT CAME OUT OF HER ROOM AT 1100 DRESSED WITH ALL HER POSSESSIONS AND HEADED TOWARDS THE FRONT DOOR STATING THAT SHE IS GOING HOME. WE WERE ABLE TO PUT A MASK ON HER AND CONVINCE HER TO RETURN TO HER ROOM. I ADVISED HER OF THE RISKS OF LEAVING [facility], BUT SHE STATED SHE IS NEEDED AT HOME AND MUST LEAVE NOW. I REMOVED HER MIDLINE. SHE AND I CALLED HER TO PICK HER UP BUT HE DID NOT ANSWER. THE [facility] WAS CALLED PER PT'S REQUEST, BUT THEY WOULD NOT TRANSPORT HER WITH BEING COVID 19+ PT THEN LEFT THE BUILDING STATING SHE WOULD WALK HOME. PT IS ALERT AND ORIENTED AND WAS ALLOWED TO LEAVE. CALLED BACK AND REQUESTED WE LEAVE HER SPEARS OUTSIDE FOR HIM TO CERTIFIED REGISTERED [employer].
== END 2020-07-07 11:20 | disposition left against medical advice (07) | DRG 177 ==
LOC: ER 10:43 → 1 SOUTH 14:45
PROVIDERS: ADMIT Internal Medicine; ATTEND Internal Medicine
DX: U07.1 COVID-19 (principal); J12.89 Other viral pneumonia; J96.01 Acute respiratory failure with hypoxia; E87.1 Hypo-osmolality and hyponatremia; E87.6 Hypokalemia; E88.09 Other disorders of plasma-protein metabolism, not elsewhere classified; F03.90 Unspecified dementia, unspecified severity, without behavioral disturbance, psychotic disturbance, mood disturbance, and anxiety; F31.9 Bipolar disorder, unspecified; G25.81 Restless legs syndrome; G40.909 Epilepsy, unspecified, not intractable, without status epilepticus; G43.909 Migraine, unspecified, not intractable, without status migrainosus; K59.00 Constipation, unspecified; I10 Essential (primary) hypertension; Z82.49 Family history of ischemic heart disease and other diseases of the circulatory system; Z83.3 Family history of diabetes mellitus; Z87.891 Personal history of nicotine dependence; Z90.710 Acquired absence of both cervix and uterus; F41.9 Anxiety disorder, unspecified; K21.9 Gastro-esophageal reflux disease without esophagitis
CPT/HCPCS: 36415; 71275; 80053; 80185; 80307; 82553; 83605; 83880; 84484; 85025; 85027; 85379; 85610; 85730; 87040; 90471; 90686; 93005; 96365; 96366; J0456; J0696; J1100; J1650; J2997; J7040; J7050; Q9967; 99291-25

== ENCOUNTER 2021-03-01 23:41 | Emergency (ER) | payer MEDICARE, OTHER ==
[~2021-03-01] VITALS: Ht 160 cm; Wt 58.9 kg
[2021-03-01 23:41] VITALS: BP 136/91
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
--- NOTE | 2021-03-02 01:38 | RAD ---
EXAM: RIGHT HAND 3 VIEWS. HISTORY: Pain after injury. COMPARISON: 05/23/2020. FINDINGS: A small ossicle along the dorsal aspect of the first distal phalanx is not acute and may re present a chronically fragmented osteophyte. No acute fractures are identified. Alignment is maintain ed. 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 A prominent degenerative cysts within th e scaphoid and measures 4 mm. Rings project over the fourth proximal phalanx. IMPRESSION: 1. No fracture. Electronically signed by: Emil Zarate MD (03/02/2021 1:35 AM) [facility]
[2021-03-02] MEDS ORDERED: HYDROcodone/APAP 5/325MG 1 TAB TABLET PO ONE (02:00)
== END 2021-03-02 01:50 | disposition home or self-care (01) ==
LOC: ER 23:41
DX: M79.641 Pain in right hand (principal); I10 Essential (primary) hypertension; F41.9 Anxiety disorder, unspecified; F17.210 Nicotine dependence, cigarettes, uncomplicated; F15.10 Other stimulant abuse, uncomplicated; Z90.710 Acquired absence of both cervix and uterus; Y04.2XXA Assault by strike against or bumped into by another person, initial encounter; Y93.89 Activity, other specified; Y92.89 Other specified places as the place of occurrence of the external cause; Y99.8 Other external cause status
CPT/HCPCS: 73130; 99283

== ENCOUNTER 2021-05-20 17:50 | Emergency (ER) | payer MEDICARE ==
[~2021-05-20] VITALS: Ht 160 cm; Wt 69.6 kg
[2021-05-20 18:05] VITALS: BP 178/111
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
[2021-05-20] MEDS: MIDAZOLAM HCL PF 5 MG/5 ML VIAL. IV ONE (18:51)
[2021-05-20 18:58] LABS: BASO # 0.1 x10^3/uL (0.0-0.2); BASO % 1 % (0-3); EOS # 0.1 x10^3/uL (0.0-0.7); EOS % 2 % (0-3); HEMOGLOBIN 13.2 g/dL (12.0-15.5); LYMPH # 2.1 x10^3/uL (1.0-4.8); LYMPH % 38 % (24-48); MEAN CORPUSCULAR HEMOGLOBIN 31 pg (25-35); MEAN CORPUSCULAR HGB CONC 34 g/dL (31-37); MEAN CORPUSCULAR VOLUME 92 fL (79-100); MONO # 0.6 x10^3/uL (0.0-1.1); MONO % 11 % (0-9); NEUT # 2.7 x10^3uL (1.8-7.7); NEUT % 48 % (31-73); PLATELET COUNT 304 x10^3/uL (140-400); RED BLOOD COUNT 4.24 x10^6/uL (3.50-5.40); RED CELL DISTRIBUTION WIDTH 12.8 % (11.5-14.5); WHITE BLOOD COUNT 5.6 x10^3/uL (4.0-11.0)
[2021-05-20 19:03] LABS: CREATININE 1.1 mg/dL (0.6-1.0); GFR 51.6; POTASSIUM 3.7 mmol/L (3.5-5.1)
[2021-05-20 19:09] LABS: ALBUMIN 3.3 g/dL (3.4-5.0); ALBUMIN/GLOBULIN RATIO 0.8 (1.0-1.7); TOTAL BILIRUBIN 0.3 mg/dL (0.2-1.0); TOTAL PROTEIN 7.3 g/dL (6.4-8.2)
--- NOTE | 2021-05-20 19:20 | RAD ---
CT of the chest without contrast: Clinical History: Reason: SOA, hematemisis-best images obtained, pt refused to hold still / Spl. Ins tructions: / History: . Axial helical images of the chest were obtained without contrast. COMPARISON: There is moderate motion artifact. There is a moderate size hiatal hernia. There is postsurgical changes of the GE junction as well. There is a single mildly enlarged lymph node in the left axilla. This was seen previously and appears stable. There is bilateral breast implants. The lungs and pleural margins are clear. There is no mediastinal or hilar lymphadenopathy. Impression: No acute findings. End impression PQRS Compliance Statement: One or more of the following individualized dose reduction techniques were utilized for this examinat ion: 1. Automated exposure control 2. Adjustment of the mA and/or kV according to patient size 3. Use of iterative reconstruction technique Electronically signed by: Tahir Bear III, MD (05/20/2021 7:18 PM) [facility]
--- NOTE | 2021-05-21 06:12 | EKG ---
[address] [address] Test Date: 2021-05-20 Test Time: 18:13:40 Pat Name: NORMA POPE Department: Room: Gender: F [employer] Equipment Operator: [place] : 1965 Requested By: CLAIRE LOPEZ Order Number: [id number] Reading MD: Measurements Intervals [place] Rate: 88 P: 35 NM: 122 QRS: -3 QRSD: 92 T: 43 QT: 374 QTc: 456 Interpretive Statements SINUS RHYTHM LEFTWARD AXIS OTHERWISE NORMAL ECG RI6.02 No previous ECG available for comparison
== END 2021-05-20 19:33 | disposition home or self-care (01) ==
LOC: ER 17:50
DX: R06.02 Shortness of breath (principal); F41.9 Anxiety disorder, unspecified; F31.9 Bipolar disorder, unspecified; F03.90 Unspecified dementia, unspecified severity, without behavioral disturbance, psychotic disturbance, mood disturbance, and anxiety; I10 Essential (primary) hypertension; F17.210 Nicotine dependence, cigarettes, uncomplicated; Z88.8 Allergy status to other drugs, medicaments and biological substances; Z88.5 Allergy status to narcotic agent
CPT/HCPCS: 36415; 71250; 80053; 84484; 85025; 93005; 96374; 99285; J2250